=== PATIENT | male | born 1975 | race Caucasian/White ===

== ENCOUNTER 2016-08-31 16:53 | Emergency (ER) | payer OTHER ==
[~2016-08-31] VITALS: Ht 177.8 cm; Wt 128.4 kg
[~2016-08-31 16:53] MED LIST: ATOR1TAB21 PO; ATOR40TA PO; BACL-67 PO; BACL10TA2 PO; COPA20IN SC; GABA300C3 PO; HYDR-3719 PO; HYDR10T PO; MAGN400T5 PO; PARO20TA2 PO; PRAZ1CAP PO; TIZA2TA PO; TOPI25CA PO; VENL150T PO; VITA100066 PO
[2016-08-31] MEDS ORDERED: OMEP40CA2 PO (17:14)
[2016-08-31] MEDS ORDERED: GASTROGRAFIN SOLUTION 30ML (Q9963) As Ordered ONE (22:35)
[2016-08-31] MEDS: GASTROGRAFIN SOLUTION 30ML (Q9963) PO ONE ×2 (22:40→23:10)
[2016-08-31 22:51] LABS: WHITE BLOOD COUNT 7.7 K/mm3 (4.0-10.0)
[2016-08-31 22:52] LABS: BASO # 0.1 K/mm3 (0.0-0.2); BASO % 0.7 % (0.0-1.0); EOS # 0.1 K/mm3 (0.0-0.50); EOS % 1.6 % (0.0-3.0); LARGE UNSTAINED CELL # 0.2 K/mm3 (0.0-0.4); LARGE UNSTAINED CELL % 2.6 % (0.0-4.0); LYMPH # 1.8 K/mm3 (1.5-4.5); LYMPH % 23.7 % (24.0-44.0); MEAN CORPUSCULAR HEMOGLOBIN 28.4 pg (27.0-33.0); MEAN CORPUSCULAR HGB CONC 33.5 g/dl (32.0-36.5); MEAN CORPUSCULAR VOLUME 84.7 fl (80.0-96.0); MONO # 0.6 K/mm3 (0.0-0.8); MONO % 8.4 % (0.0-5.0); NEUTROPHILS # 4.8 K/mm3 (1.8-7.7); PLATELET COUNT, AUTOMATED 286 k/mm3 (150-450); RED CELL DISTRIBUTION WIDTH 12.1 % (11.5-14.5)
[2016-08-31 23:05] LABS: ALBUMIN 4.1 GM/DL (3.2-5.2); ALBUMIN/GLOBULIN RATIO 1.14 (1.00-1.93); ALKALINE PHOSPHATASE 114 U/L (45-117); ALT/SGPT 74 U/L (12-78); ANION GAP 10 MEQ/L (8-16); AST/SGOT 23 U/L (15-37); BILIRUBIN,TOTAL 1.2 MG/DL (0.2-1.0); BLOOD UREA NITROGEN 17 MG/DL (7-18); CALCIUM LEVEL 8.3 MG/DL (8.5-10.1); CARBON DIOXIDE LEVEL 27 MEQ/L (21-32); CHLORIDE LEVEL 106 MEQ/L (98-107); CREATININE FOR GFR 1.19 MG/DL (0.70-1.30); GLOMERULAR FILTRATION RATE > 60.0 (>60); GLUCOSE, FASTING 101 MG/DL (70-105); SODIUM LEVEL 143 MEQ/L (136-145); TOTAL PROTEIN 7.7 GM/DL (6.4-8.2)
[2016-09-01] MEDS ORDERED: ISOVUE-370 76% 100ML VIAL (Q9967) As Ordered ONE (00:08)
[2016-09-01] MEDS ORDERED: LR 1,000 ML IV SCH (01:00)
--- NOTE | 2016-09-01 02:10 | REPUSA ---
CLINICAL HISTORY: Abdominal pain. TECHNIQUE: Multiple axial, sagittal and coronal CT images were obtained through the abdomen and pelvi s after administration of intravenous contrast material. COMMENTS: The liver is of uniform decreased attenuation without mass or defect compatible fatty infiltration. T here is no intra or extrahepatic biliary ductal dilatation. The spleen is normal. The gallbladder is within normal limits. The pancreas is of normal contour and attenuation characteristics. There is no evidence of adrenal mass. Both kidneys demonstrate prompt and equal nephrograms. The kidneys are normal in size, shape and conf iguration. There is no evidence of renal or ureteral mass. No renal or ureteral calculi are identifie d. There is no hydroureter or hydronephrosis. No evidence for appendicitis. There is no bowel wall thickening. No evidence for small or large vicente l obstruction. There is no evidence of abdominal ascites or lymphadenopathy. There is no evidence of intrinsic or extrinsic bladder mass. There is no pelvic ascites or lymphadeno guru. Images of the lung bases show no evidence of pleural or parenchymal mass. There are no pleural effusi ons. The bony structures are free of lytic or blastic lesions. IMPRESSION: Fatty liver. No evidence of acute abdominal or pelvic pathology. Thank you for your kind referral of this patient.
[2016-09-01] MEDS ORDERED: STOO100C PO (02:18)
[2016-09-01 02:53] VITALS: BP 135/78
== END 2016-09-01 02:55 | disposition home or self-care (01) ==
LOC: M ED 19:39
DX: K62.5 Hemorrhage of anus and rectum (principal)
CPT/HCPCS: 74177; 80053; 81001; 85025; 99283; Q9963; Q9967

== ENCOUNTER 2016-09-12 15:05 | Emergency (ER) | payer OTHER ==
[~2016-09-12] VITALS: Ht 175.3 cm; Wt 129.7 kg
[~2016-09-12 15:05] MED LIST changes: +GABA-282 PO; -GABA300C3 PO; +OMEP40CA2 PO; -PARO20TA2 PO; +PARO20TA3 PO; +STOO100C PO
[2016-09-12] MEDS ORDERED: [UNRECOGNIZED DRUG - OTHER] SC (15:18)
[2016-09-12] MEDS ORDERED: GABA-283 PO (15:18)
[2016-09-12] MEDS ORDERED: KETOROLAC 30 MG/ML VIAL (J1885) IV ONE (16:15)
[2016-09-12 17:18] LABS: BASO % 0.6 % (0.0-1.0); EOS # 0.1 K/mm3 (0.0-0.50); EOS % 1.8 % (0.0-3.0); LARGE UNSTAINED CELL # 0.2 K/mm3 (0.0-0.4); LARGE UNSTAINED CELL % 2.7 % (0.0-4.0); LYMPH # 1.9 K/mm3 (1.5-4.5); LYMPH % 27.7 % (24.0-44.0); MEAN CORPUSCULAR HEMOGLOBIN 28.5 pg (27.0-33.0); MEAN CORPUSCULAR HGB CONC 33.8 g/dl (32.0-36.5); MEAN CORPUSCULAR VOLUME 84.4 fl (80.0-96.0); MONO # 0.6 K/mm3 (0.0-0.8); MONO % 8.6 % (0.0-5.0); NEUTROPHILS # 4.1 K/mm3 (1.8-7.7); NEUTROPHILS % 58.7 % (36.0-66.0); PLATELET COUNT, AUTOMATED 306 k/mm3 (150-450); RED CELL DISTRIBUTION WIDTH 12.1 % (11.5-14.5); WHITE BLOOD COUNT 6.9 K/mm3 (4.0-10.0)
[2016-09-12 17:21] LABS: ANION GAP 8 MEQ/L (8-16); BLOOD UREA NITROGEN 13 MG/DL (7-18); CALCIUM LEVEL 9.1 MG/DL (8.5-10.1); CARBON DIOXIDE LEVEL 26 MEQ/L (21-32); CHLORIDE LEVEL 108 MEQ/L (98-107); CREATININE FOR GFR 1.02 MG/DL (0.70-1.30); GLOMERULAR FILTRATION RATE > 60.0 (>60); GLUCOSE, FASTING 82 MG/DL (70-105); POTASSIUM SERUM 4.2 MEQ/L (3.5-5.1); SODIUM LEVEL 142 MEQ/L (136-145)
[2016-09-12 19:24] VITALS: BP 152/71
--- NOTE | 2016-09-12 19:30 | REPUSA ---
CLINICAL HISTORY: -BACK PAIN, NUMBNESS, URINARY INCONTINANCE TECHNIQUE: Fast spin echo T2 and spin echo T1 sequences were obtained in axial and sagittal planes. FINDINGS: Compared to 11/29/15 study. The visualized osseous elements are intact with no evidence of fracture or spondylolisthesis. The marrow signals are within normal limits. There are mild L4-S1 degenerative changes with small posterior spurring and subchondral sclerosis. There is straightening of normal lordotic curvature, compatible with muscle spasm. The conus medullaris and cauda equina are within normal limits. L2-S1 moderate disc desiccation noted. Evaluation of individual levels reveals the following: At L5-S1, 2 mm posterior broad-based disc bulge. Canal and neural foramina remain patent. At L4-L5, 2 mm posterior broadbase disc bulge. Canal and neural foramina remain patent. At L3-L4, 2 mm posterior broad-based disc bulge. Canal and neural foramina remain patent. At L2-L3, 1 mm posterior broad-based disc bulge. Canal and neural foramina remain patent. At L1-L2, there is no disk herniation or bulge. Canal and neural foramina remain patent. IMPRESSION: No interval change. No acute fracture or spondylolisthesis. At L5-S1, 2 mm posterior broad-based disc bulge. Canal and neural foramina remain patent. At L4-L5, 2 mm posterior broadbase disc bulge. Canal and neural foramina remain patent. At L3-L4, 2 mm posterior broad-based disc bulge. Canal and neural foramina remain patent. At L2-L3, 1 mm posterior broad-based disc bulge. Canal and neural foramina remain patent. Thank you for your kind referral of this patient.
--- NOTE | 2016-09-13 06:52 | ED PDOC ---
Post-Departure Follow-Up patient was signed out to me by Dr. Garcia pending MRI at 5:30. At 7pm I signed patient out to Dr. Li still pending results of MRI. Marie Leal MD Sep 13, 2016 06:52
== END 2016-09-12 21:49 | disposition home or self-care (01) ==
LOC: M ED 17:03
DX: G89.29 Other chronic pain (principal); M54.9 Dorsalgia, unspecified
CPT/HCPCS: 72148; 80048; 85025; 96374; 96375; 99283; J1885; J3360

== ENCOUNTER 2017-06-13 14:55 | Emergency (ER) | payer OTHER ==
[2017-06-13] MEDS: NS 1,000 ML IV (15:30)
[2017-06-13 15:42] LABS: MEAN CORPUSCULAR HEMOGLOBIN 28.5 pg (27.0-33.0); MEAN CORPUSCULAR HGB CONC 33.9 g/dl (32.0-36.5); MEAN CORPUSCULAR VOLUME 84.3 fl (80.0-96.0); PLATELET COUNT, AUTOMATED 323 10^3/uL (150-450); RED CELL DISTRIBUTION WIDTH 12.1 % (11.5-14.5); WHITE BLOOD COUNT 6.3 10^3/uL (4.0-10.0)
[2017-06-13] MEDS: methylPREDNISolone 1,000 MG, VIAL MATE ADAPTER 1 EACH in D5W 250 ML IV (15:42)
[2017-06-13 16:10] LABS: ANION GAP 7 MEQ/L (8-16); BLOOD UREA NITROGEN 14 MG/DL (7-18); CALCIUM LEVEL 8.8 MG/DL (8.5-10.1); CARBON DIOXIDE LEVEL 27 MEQ/L (21-32); CHLORIDE LEVEL 107 MEQ/L (98-107); CREATININE FOR GFR 1.04 MG/DL (0.70-1.30); GLOMERULAR FILTRATION RATE > 60.0 (>60); GLUCOSE, FASTING 98 MG/DL (70-105); POTASSIUM SERUM 3.7 MEQ/L (3.5-5.1); SODIUM LEVEL 141 MEQ/L (136-145)
[2017-06-13 17:37] LABS: AMORPHOUS SEDIMENT RFX SMALL (NEGATIVE); KETONE, URINE AUTO RFX NEGATIVE (NEGATIVE); LEUKOCYTE ESTERASE UR AUTO RFX NEGATIVE (NEGATIVE); NITRITE, URINE AUTO RFX NEGATIVE (NEGATIVE); RBC, URINE AUTO RFX 1 /HPF (0-3); SPECIFIC GRAVITY UR AUTO RFX 1.002 (1.002-1.035); SQUAM EPITHELIAL CELL UR AURFX 0 /HPF (0-6); WBC, URINE AUTO RFX 0 /HPF (0-3)
== END 2017-06-13 18:00 | disposition home or self-care (01) ==
LOC: M ED 14:55
DX: G35 Multiple sclerosis (principal); F43.10 Post-traumatic stress disorder, unspecified; Z87.820 Personal history of traumatic brain injury; Z79.899 Other long term (current) drug therapy; Z88.8 Allergy status to other drugs, medicaments and biological substances; Z99.89 Dependence on other enabling machines and devices
CPT/HCPCS: J2930

== ENCOUNTER 2017-08-14 15:39 | Emergency (ER) | payer OTHER ==
[2017-08-14] MEDS: diphenhydrAMINE INJ 50MG/ML VIAL (J1200) IV (16:50)
[2017-08-14] MEDS: METOCLOPRAMIDE INJ 10MG/2ML VIAL (J2765) IV (17:00)
[2017-08-14] MEDS: KETOROLAC 30 MG/ML VIAL (J1885) IV (17:00)
[2017-08-14] MEDS: NS 1,000 ML IV (17:00)
[2017-08-14] MEDS: methylPREDNISolone 1,000 MG, VIAL MATE ADAPTER 1 EACH in D5W 250 ML IV (17:00)
== END 2017-08-14 19:18 | disposition home or self-care (01) ==
LOC: M ED 15:39
DX: G35 Multiple sclerosis (principal); R51 Headache; R20.9 Unspecified disturbances of skin sensation; Z87.891 Personal history of nicotine dependence; Z88.8 Allergy status to other drugs, medicaments and biological substances; Z79.899 Other long term (current) drug therapy
CPT/HCPCS: J1200

== ENCOUNTER 2017-11-02 20:23 | Inpatient (IN) | payer OTHER ==
[2017-11-02 21:55] LABS: BASO % 0.5 % (0.0-1.0); EOS # 0.2 10^3/uL (0.0-0.50); EOS % 2.5 % (0.0-3.0); HEMATOCRIT 40.3 % (42.0-52.0); HEMOGLOBIN 13.4 g/dl (13.5-17.5); IMMATURE GRANULOCYTE % 0.3 % (0-3.0); LYMPH # 2.5 10^3/uL (1.5-4.5); MEAN CORPUSCULAR HEMOGLOBIN 28.6 pg (27.0-33.0); MEAN CORPUSCULAR HGB CONC 33.3 g/dl (32.0-36.5); MEAN CORPUSCULAR VOLUME 86.1 fl (80.0-96.0); MONO # 0.7 10^3/uL (0.0-0.8); MONO % 11.4 % (0.0-5.0); NEUTROPHILS % 46.3 % (36.0-66.0); PLATELET COUNT, AUTOMATED 322 10^3/uL (150-450); RED BLOOD COUNT 4.68 10^6/uL (4.30-6.10); RED CELL DISTRIBUTION WIDTH 12.4 % (11.5-14.5); WHITE BLOOD COUNT 6.4 10^3/uL (4.0-10.0)
[2017-11-02 21:59] LABS: INR 0.89; PROTHROMBIN TIME 12.1 SECONDS (12.4-14.5)
[2017-11-02 22:00] LABS: PARTIAL THROMBOPLASTIN TIME 30.1 SECONDS (26.8-37.9)
[2017-11-02 22:08] LABS: ALBUMIN 4.1 GM/DL (3.2-5.2); ALBUMIN/GLOBULIN RATIO 1.24 (1.00-1.93); ALKALINE PHOSPHATASE 117 U/L (45-117); ALT/SGPT 27 U/L (12-78); ANION GAP 6 MEQ/L (8-16); AST/SGOT 13 U/L (7-37); BILIRUBIN,DIRECT 0.1 MG/DL (0.0-0.2); BILIRUBIN,TOTAL 0.4 MG/DL (0.2-1.0); BLOOD UREA NITROGEN 12 MG/DL (7-18); CARBON DIOXIDE LEVEL 25 MEQ/L (21-32); CHLORIDE LEVEL 112 MEQ/L (98-107); CPK CREATINE PHOSPHOKINASE 68 U/L (39-308); CREATININE FOR GFR 0.96 MG/DL (0.70-1.30); GLOMERULAR FILTRATION RATE > 60.0 (>60); GLUCOSE, FASTING 92 MG/DL (70-100); MB/CK RELATIVE INDEX 1.47 (< OR =4); POTASSIUM SERUM 3.8 MEQ/L (3.5-5.1); SODIUM LEVEL 143 MEQ/L (136-145); TOTAL PROTEIN 7.4 GM/DL (6.4-8.2); TROPONIN I < 0.02 NG/ML (< 0.10)
[2017-11-02] MEDS ORDERED: PROHANCE 279.3MG/ML 5ML VIAL (A9576) As Ordered (23:09)
[2017-11-02] MEDS ORDERED: PROHANCE 279.3MG/ML 15ML VIAL (A9576) As Ordered (23:10)
[2017-11-03] MEDS ORDERED: ONDANSETRON 4MG/2ML VIAL (J2405) IV (02:30)
[2017-11-03] MEDS: methylPREDNISolone 1,000 MG, VIAL MATE ADAPTER 1 EACH in D5W 250 ML IV (03:11)
[2017-11-03] MEDS ORDERED: PILL CRUSHER/CUTTER 1 EACH XX (03:45)
[2017-11-03 06:26] LABS: BASO % 0.6 % (0.0-1.0); EOS # 0.1 10^3/uL (0.0-0.50); EOS % 1.5 % (0.0-3.0); HEMATOCRIT 39.2 % (42.0-52.0); HEMOGLOBIN 13.3 g/dl (13.5-17.5); IMMATURE GRANULOCYTE % 0.2 % (0-3.0); LYMPH # 1.3 10^3/uL (1.5-4.5); LYMPH % 23.9 % (24.0-44.0); MEAN CORPUSCULAR HEMOGLOBIN 28.9 pg (27.0-33.0); MEAN CORPUSCULAR HGB CONC 33.9 g/dl (32.0-36.5); MONO # 0.3 10^3/uL (0.0-0.8); MONO % 6.2 % (0.0-5.0); NEUTROPHILS # 3.6 10^3/uL (1.8-7.7); NEUTROPHILS % 67.6 % (36.0-66.0); PLATELET COUNT, AUTOMATED 306 10^3/uL (150-450); RED BLOOD COUNT 4.61 10^6/uL (4.30-6.10); RED CELL DISTRIBUTION WIDTH 12.3 % (11.5-14.5); WHITE BLOOD COUNT 5.4 10^3/uL (4.0-10.0)
[2017-11-03 06:48] LABS: ANION GAP 7 MEQ/L (8-16); BLOOD UREA NITROGEN 12 MG/DL (7-18); CALCIUM LEVEL 8.8 MG/DL (8.5-10.1); CARBON DIOXIDE LEVEL 23 MEQ/L (21-32); CHLORIDE LEVEL 113 MEQ/L (98-107); CREATININE FOR GFR 0.98 MG/DL (0.70-1.30); GLOMERULAR FILTRATION RATE > 60.0 (>60); GLUCOSE, FASTING 130 MG/DL (70-100); SODIUM LEVEL 143 MEQ/L (136-145)
[2017-11-03] MEDS: TOPIRAMATE (TopAMAX) 25 MG TAB PO (08:10)
[2017-11-03] MEDS: levETIRAcetam 250MG TABLET (KEPPRA) PO ×2 (08:10→21:41)
[2017-11-03] MEDS: busPIRone 10 MG TAB PO ×2 (08:11→21:41)
[2017-11-03] MEDS: SENOKOT S TAB PO ×2 (08:13→21:41)
[2017-11-03] MEDS: VENLAFAXINE **XR** 75MG CAPSULE PO (08:13)
[2017-11-03] MEDS: HEPARIN SOD (PORCINE) 5000 UNITS/ML VIAL SC ×3 (08:14→21:40)
[2017-11-03] MEDS: PARoxetine 10MG TABLET PO ×2 (08:37→21:41)
[2017-11-03] MEDS: ROSUVASTATIN 10 MG TAB (CRESTOR) PO (09:00)
[2017-11-03] MEDS: ACETAMINOPHEN TAB 650MG DOSE (2X325MG) PO (19:02)
[2017-11-03] MEDS: TOPIRAMATE (TopAMAX) 100 MG TAB PO (21:41)
[2017-11-04] MEDS: HEPARIN SOD (PORCINE) 5000 UNITS/ML VIAL SC ×3 (05:39→20:20)
[2017-11-04 06:34] LABS: BASO % 0.1 % (0.0-1.0); HEMATOCRIT 41.5 % (42.0-52.0); HEMOGLOBIN 13.9 g/dl (13.5-17.5); IMMATURE GRANULOCYTE % 0.7 % (0-3.0); LYMPH # 1.9 10^3/uL (1.5-4.5); LYMPH % 8.8 % (24.0-44.0); MEAN CORPUSCULAR HEMOGLOBIN 28.6 pg (27.0-33.0); MEAN CORPUSCULAR HGB CONC 33.5 g/dl (32.0-36.5); MEAN CORPUSCULAR VOLUME 85.4 fl (80.0-96.0); MONO # 1.5 10^3/uL (0.0-0.8); MONO % 6.8 % (0.0-5.0); NEUTROPHILS # 18.2 10^3/uL (1.8-7.7); NEUTROPHILS % 83.6 % (36.0-66.0); PLATELET COUNT, AUTOMATED 374 10^3/uL (150-450); RED BLOOD COUNT 4.86 10^6/uL (4.30-6.10); RED CELL DISTRIBUTION WIDTH 12.5 % (11.5-14.5); WHITE BLOOD COUNT 21.8 10^3/uL (4.0-10.0)
[2017-11-04 06:43] LABS: ANION GAP 6 MEQ/L (8-16); BLOOD UREA NITROGEN 13 MG/DL (7-18); CALCIUM LEVEL 9.6 MG/DL (8.5-10.1); CARBON DIOXIDE LEVEL 24 MEQ/L (21-32); CHLORIDE LEVEL 114 MEQ/L (98-107); CREATININE FOR GFR 0.87 MG/DL (0.70-1.30); GLOMERULAR FILTRATION RATE > 60.0 (>60); GLUCOSE, FASTING 126 MG/DL (70-100); POTASSIUM SERUM 4.3 MEQ/L (3.5-5.1); SODIUM LEVEL 144 MEQ/L (136-145)
[2017-11-04] MEDS: busPIRone 10 MG TAB PO ×2 (07:58→20:19)
[2017-11-04] MEDS: TOPIRAMATE (TopAMAX) 25 MG TAB PO (07:59)
[2017-11-04] MEDS: SENOKOT S TAB PO ×2 (07:59→20:19)
[2017-11-04] MEDS: VENLAFAXINE **XR** 75MG CAPSULE PO (07:59)
[2017-11-04] MEDS: levETIRAcetam 250MG TABLET (KEPPRA) PO ×2 (07:59→20:19)
[2017-11-04] MEDS: ROSUVASTATIN 10 MG TAB (CRESTOR) PO (08:30)
[2017-11-04] MEDS: methylPREDNISolone 1,000 MG, VIAL MATE ADAPTER 1 EACH in D5W 250 ML IV (08:45)
[2017-11-04] MEDS ORDERED: COPAXONE 40 MG SC ×2 (09:00→14:03)
[2017-11-04] MEDS: COPAXONE 40 MG SC (17:17)
[2017-11-04] MEDS ORDERED: HEPARIN SOD (PORCINE) 5000 UNITS/ML VIAL As Ordered (20:08)
[2017-11-04] MEDS: PARoxetine 10MG TABLET PO (20:19)
[2017-11-04] MEDS: TOPIRAMATE (TopAMAX) 100 MG TAB PO (20:19)
[2017-11-05] MEDS: HEPARIN SOD (PORCINE) 5000 UNITS/ML VIAL SC (05:21)
[2017-11-05 06:44] LABS: BASO % 0.1 % (0.0-1.0); HEMATOCRIT 39.2 % (42.0-52.0); IMMATURE GRANULOCYTE % 0.7 % (0-3.0); LYMPH # 1.9 10^3/uL (1.5-4.5); LYMPH % 9.2 % (24.0-44.0); MEAN CORPUSCULAR HEMOGLOBIN 28.5 pg (27.0-33.0); MEAN CORPUSCULAR HGB CONC 33.2 g/dl (32.0-36.5); MONO # 1.2 10^3/uL (0.0-0.8); MONO % 5.8 % (0.0-5.0); NEUTROPHILS # 17.5 10^3/uL (1.8-7.7); NEUTROPHILS % 84.2 % (36.0-66.0); PLATELET COUNT, AUTOMATED 332 10^3/uL (150-450); RED BLOOD COUNT 4.56 10^6/uL (4.30-6.10); RED CELL DISTRIBUTION WIDTH 12.7 % (11.5-14.5); WHITE BLOOD COUNT 20.8 10^3/uL (4.0-10.0)
[2017-11-05 07:06] LABS: ANION GAP 6 MEQ/L (8-16); BLOOD UREA NITROGEN 14 MG/DL (7-18); CALCIUM LEVEL 8.9 MG/DL (8.5-10.1); CARBON DIOXIDE LEVEL 24 MEQ/L (21-32); CHLORIDE LEVEL 112 MEQ/L (98-107); CREATININE FOR GFR 0.86 MG/DL (0.70-1.30); GLOMERULAR FILTRATION RATE > 60.0 (>60); GLUCOSE, FASTING 126 MG/DL (70-100); POTASSIUM SERUM 4.4 MEQ/L (3.5-5.1); SODIUM LEVEL 142 MEQ/L (136-145)
[2017-11-05] MEDS: busPIRone 10 MG TAB PO (08:20)
[2017-11-05] MEDS: ROSUVASTATIN 10 MG TAB (CRESTOR) PO (08:20)
[2017-11-05] MEDS: TOPIRAMATE (TopAMAX) 25 MG TAB PO (08:21)
[2017-11-05] MEDS: VENLAFAXINE **XR** 75MG CAPSULE PO (08:21)
[2017-11-05] MEDS: SENOKOT S TAB PO (08:21)
[2017-11-05] MEDS: methylPREDNISolone 1,000 MG, VIAL MATE ADAPTER 1 EACH in D5W 250 ML IV (08:23)
== END 2017-11-05 12:15 | disposition home or self-care (01) | DRG 59 ==
LOC: M ED INP 11-03 04:39 → M ED 20:23 → M MS5PR 11-03 07:51
DX: G35 Multiple sclerosis (principal); H46.9 Unspecified optic neuritis; Z88.8 Allergy status to other drugs, medicaments and biological substances; F41.9 Anxiety disorder, unspecified; F32.9 Major depressive disorder, single episode, unspecified; E78.5 Hyperlipidemia, unspecified; M54.5 Low back pain; G47.33 Obstructive sleep apnea (adult) (pediatric); M10.9 Gout, unspecified; Z79.899 Other long term (current) drug therapy; F17.220 Nicotine dependence, chewing tobacco, uncomplicated; F12.90 Cannabis use, unspecified, uncomplicated

== ENCOUNTER 2017-11-06 07:22 | Outpatient (CLI) | payer SELFPAY, OTHER ==
[2017-11-06] MEDS: methylPREDNISolone 1,000 MG, VIAL MATE ADAPTER 1 EACH in D5W 250 ML IV (07:44)
== END 2017-11-06 08:50 | disposition home or self-care (01) ==
LOC: M INFU 07:22
DX: J44.9 Chronic obstructive pulmonary disease, unspecified (principal); G35 Multiple sclerosis; I10 Essential (primary) hypertension; E78.00 Pure hypercholesterolemia, unspecified; M54.5 Low back pain; F32.9 Major depressive disorder, single episode, unspecified; F41.9 Anxiety disorder, unspecified; F17.210 Nicotine dependence, cigarettes, uncomplicated; Z79.899 Other long term (current) drug therapy; Z88.8 Allergy status to other drugs, medicaments and biological substances
CPT/HCPCS: J2930

== ENCOUNTER 2018-01-13 00:46 | Emergency (ER) | payer OTHER, SELFPAY ==
[2018-01-13 02:31] LABS: BASO % 0.4 % (0.0-1.0); EOS # 0.2 10^3/uL (0.0-0.50); EOS % 2.1 % (0.0-3.0); HEMOGLOBIN 12.7 g/dl (13.5-17.5); IMMATURE GRANULOCYTE % 0.4 % (0-3.0); LYMPH # 1.9 10^3/uL (1.5-4.5); LYMPH % 25.3 % (24.0-44.0); MEAN CORPUSCULAR HEMOGLOBIN 28.9 pg (27.0-33.0); MEAN CORPUSCULAR HGB CONC 33.4 g/dl (32.0-36.5); MEAN CORPUSCULAR VOLUME 86.4 fl (80.0-96.0); MONO # 0.8 10^3/uL (0.0-0.8); MONO % 10.6 % (0.0-5.0); NEUTROPHILS # 4.6 10^3/uL (1.8-7.7); NEUTROPHILS % 61.2 % (36.0-66.0); PLATELET COUNT, AUTOMATED 258 10^3/uL (150-450); RED CELL DISTRIBUTION WIDTH 12.1 % (11.5-14.5); WHITE BLOOD COUNT 7.6 10^3/uL (4.0-10.0)
[2018-01-13 02:50] LABS: ANION GAP 9 MEQ/L (8-16); BLOOD UREA NITROGEN 14 MG/DL (7-18); CALCIUM LEVEL 8.4 MG/DL (8.5-10.1); CARBON DIOXIDE LEVEL 23 MEQ/L (21-32); CHLORIDE LEVEL 111 MEQ/L (98-107); CREATININE FOR GFR 0.92 MG/DL (0.70-1.30); GLOMERULAR FILTRATION RATE > 60.0 (>60); GLUCOSE, FASTING 129 MG/DL (70-100); POTASSIUM SERUM 3.5 MEQ/L (3.5-5.1); SODIUM LEVEL 143 MEQ/L (136-145)
[2018-01-13 02:54] LABS: LACTIC ACID SEPSIS PROTOCOL 0.9 MMOL/L (0.4-2.0)
[2018-01-13] MEDS: NS 500 ML IV (03:15)
[2018-01-13] MEDS: levETIRAcetam 250MG TABLET (KEPPRA) PO (03:24)
== END 2018-01-13 03:58 | disposition home or self-care (01) ==
LOC: M ED 00:46
DX: G40.909 Epilepsy, unspecified, not intractable, without status epilepticus (principal); G35 Multiple sclerosis; Z87.891 Personal history of nicotine dependence; Z88.8 Allergy status to other drugs, medicaments and biological substances; Z79.899 Other long term (current) drug therapy
CPT/HCPCS: 83605

== ENCOUNTER 2018-05-01 10:36 | Emergency (ER) | payer OTHER ==
[2018-05-01] MEDS: MORPHINE 4 MG/ML 1ML VIAL/SYRINGE (J2270) IV ×2 (12:07→13:15)
== END 2018-05-01 14:06 | disposition home or self-care (01) ==
LOC: M ED 10:36
DX: M54.5 Low back pain (principal); W19.XXXA Unspecified fall, initial encounter; I10 Essential (primary) hypertension; E78.5 Hyperlipidemia, unspecified; F43.10 Post-traumatic stress disorder, unspecified; R51 Headache; G35 Multiple sclerosis; Z86.718 Personal history of other venous thrombosis and embolism; G47.30 Sleep apnea, unspecified; K21.9 Gastro-esophageal reflux disease without esophagitis; N40.0 Benign prostatic hyperplasia without lower urinary tract symptoms; K52.9 Noninfective gastroenteritis and colitis, unspecified; Z87.820 Personal history of traumatic brain injury; M21.372 Foot drop, left foot; H46.9 Unspecified optic neuritis; Z79.899 Other long term (current) drug therapy; Z88.8 Allergy status to other drugs, medicaments and biological substances
CPT/HCPCS: J2270

== ENCOUNTER 2018-05-12 00:09 | Emergency (ER) | payer OTHER ==
[2018-05-12 01:39] LABS: BASO % 0.2 % (0.0-1.0); EOS # 0.1 10^3/uL (0.0-0.50); EOS % 1.5 % (0.0-3.0); HEMATOCRIT 38.7 % (42.0-52.0); IMMATURE GRANULOCYTE % 0.4 % (0-3.0); LYMPH # 0.5 10^3/uL (1.5-4.5); LYMPH % 8.3 % (24.0-44.0); MEAN CORPUSCULAR HEMOGLOBIN 28.7 pg (27.0-33.0); MEAN CORPUSCULAR HGB CONC 33.6 g/dl (32.0-36.5); MEAN CORPUSCULAR VOLUME 85.4 fl (80.0-96.0); MONO # 0.8 10^3/uL (0.0-0.8); MONO % 14.5 % (0.0-5.0); NEUTROPHILS # 4.1 10^3/uL (1.8-7.7); NEUTROPHILS % 75.1 % (36.0-66.0); PLATELET COUNT, AUTOMATED 251 10^3/uL (150-450); RED BLOOD COUNT 4.53 10^6/uL (4.30-6.10); RED CELL DISTRIBUTION WIDTH 12.1 % (11.5-14.5); WHITE BLOOD COUNT 5.5 10^3/uL (4.0-10.0)
[2018-05-12 01:59] LABS: ANION GAP 6 MEQ/L (8-16); BLOOD UREA NITROGEN 17 MG/DL (7-18); CALCIUM LEVEL 8.4 MG/DL (8.5-10.1); CARBON DIOXIDE LEVEL 25 MEQ/L (21-32); CHLORIDE LEVEL 110 MEQ/L (98-107); CREATININE FOR GFR 1.07 MG/DL (0.70-1.30); GLOMERULAR FILTRATION RATE > 60.0 (>60); GLUCOSE, FASTING 102 MG/DL (70-100); MAGNESIUM LEVEL 2.1 MG/DL (1.8-2.4); PHOSPHORUS LEVEL 3.3 MG/DL (2.5-4.9); POTASSIUM SERUM 3.7 MEQ/L (3.5-5.1); SODIUM LEVEL 141 MEQ/L (136-145)
[2018-05-12] MEDS: LORazepam 2 MG/ML VIAL (J2060) IV (02:30)
== END 2018-05-12 02:42 | disposition home or self-care (01) ==
LOC: M ED 00:09
DX: F41.9 Anxiety disorder, unspecified (principal); F44.5 Conversion disorder with seizures or convulsions; Z79.899 Other long term (current) drug therapy; Z88.8 Allergy status to other drugs, medicaments and biological substances; F17.220 Nicotine dependence, chewing tobacco, uncomplicated
CPT/HCPCS: J2060

== ENCOUNTER 2018-07-24 23:33 | Emergency (ER) | payer OTHER ==
[~2018-07-24] VITALS: Ht 177.8 cm; Wt 110.5 kg
[~2018-07-24 23:33] MED LIST changes: +ATIV1TAB10 PO; -ATOR40TA PO; +ATOR40TA75 PO; -BACL-67 PO; +BACL1TAB9 PO; +BUSP10TA PO; +COPA1INJ SC; +CRES5TAB PO; +CYCL10TA PO; +DULO30CA PO; -GABA-282 PO; +GABA-843 PO; +GABA-845 PO; +GILE1CAP PO; +HYDR-643 PO; -HYDR10T PO; +KEPP1TAB2 PO; +MYSO50TA5 PO; +TOPI100T9 PO; +TOPI25TA10 PO; +VENL150C43 PO; +ZYLO100T2 PO; +[UNRECOGNIZED DRUG - OTHER] SC
[2018-07-24] MEDS ORDERED: NAPROXEN 250 MG TAB PO ONE (23:45)
[2018-07-24] MEDS ORDERED: NAPR-50 PO (23:47)
[2018-07-25] MEDS ORDERED: AMMONIA AROMATIC INHALANT (FLOOR STOCK) As Ordered ONE (00:06)
[2018-07-25] MEDS ORDERED: methylPREDNISolone 1,000 MG, VIAL MATE ADAPTER 1 EACH in D5W 250 ML IV ONE (00:15)
[2018-07-25 00:34] LABS: HEMATOCRIT 39.5 % (42.0-52.0); HEMOGLOBIN 13.5 g/dl (13.5-17.5); WHITE BLOOD COUNT 4.4 10^3/uL (4.0-10.0)
[2018-07-25 00:35] LABS: BASO % 0.5 % (0.0-1.0); EOS # 0.1 10^3/uL (0.0-0.50); EOS % 1.4 % (0.0-3.0); LYMPH # 1.1 10^3/uL (1.5-4.5); LYMPH % 24.7 % (24.0-44.0); MEAN CORPUSCULAR HEMOGLOBIN 28.7 pg (27.0-33.0); MEAN CORPUSCULAR HGB CONC 34.2 g/dl (32.0-36.5); MONO # 0.8 10^3/uL (0.0-0.8); MONO % 17.8 % (0.0-5.0); NEUTROPHILS # 2.4 10^3/uL (1.8-7.7); NEUTROPHILS % 55.4 % (36.0-66.0); PLATELET COUNT, AUTOMATED 264 10^3/uL (150-450)
--- NOTE | 2018-07-25 00:37 | REPVR ---
EXAM: CT Head Without Contrast EXAM DATE/TIME: 07/25/2018 12:13 AM CLINICAL HISTORY: 43 years old, male; Pain; Headache; Headache not specified; Additional info: CVA - nursing interventions must not delay CT TECHNIQUE: Axial computed tomography images of the head/brain without contrast. All CT scans at this facility use at least one of these dose optimization techniques: automated exposure control; mA and/or kV adjustment per patient size (includes targeted exams where dose is matched to clinical indication); or iterative reconstruction. COMPARISON: CT Head without contrast 11/02/2017 9:56 PM FINDINGS: Brain: Minimal area of subcortical gliosis or old deep white matter infarct in the left frontal lobe which is less prominent since the prior study. Ventricles: Normal. No ventriculomegaly. Bones/joints: Unremarkable. No acute fracture. Sinuses: Visualized sinuses are unremarkable. No acute sinusitis. Mastoid air cells: Visualized mastoid air cells are unremarkable. No mastoid effusion. Soft tissues: Unremarkable. IMPRESSION: 1. Minimal subcortical old deep white matter infarct or gliosis in the left frontal lobe which is less prominent since 11/02/2017. 2. Otherwise negative noncontrast head CT which is otherwise unchanged. Electronically signed by: Brain Jj On 07/25/2018 00:37:36 AM
[2018-07-25 00:59] LABS: BLOOD UREA NITROGEN 14 MG/DL (7-18); CALCIUM LEVEL 8.8 MG/DL (8.5-10.1); CARBON DIOXIDE LEVEL 25 MEQ/L (21-32); CHLORIDE LEVEL 110 MEQ/L (98-107); CPK CREATINE PHOSPHOKINASE 76 U/L (39-308); CREATININE FOR GFR 1.06 MG/DL (0.70-1.30); GLOMERULAR FILTRATION RATE > 60.0 (>60); GLUCOSE, FASTING 125 MG/DL (70-100); MB/CK RELATIVE INDEX 1.32 (< OR =4); POTASSIUM SERUM 3.7 MEQ/L (3.5-5.1); SODIUM LEVEL 142 MEQ/L (136-145); TROPONIN I < 0.02 NG/ML (< 0.10)
[2018-07-25 01:06] LABS: INR 0.95; PROTHROMBIN TIME 12.8 SECONDS (12.1-14.4)
[2018-07-25 01:07] LABS: PARTIAL THROMBOPLASTIN TIME 28.4 SECONDS (25.4-37.6)
--- NOTE | 2018-07-25 02:08 | REP ---
Clinical: Cerebrovascular accident . Comparison: 06/13/2017 . Findings: The mediastinum and cardiac silhouette are stable and within normal limits for portable technique. The lung emmanuel are clear without acute consolidation, effusion, or pneumothorax. Skeletal structures are intact. Impression: No acute cardiopulmonary process appreciated. Electronically Signed by Eber Gonzalez MD 07/25/2018 02:00 A
[2018-07-25] MEDS ORDERED: PROHANCE 279.3MG/ML 15ML VIAL (A9576) As Ordered ONE (04:48)
[2018-07-25] MEDS ORDERED: PROHANCE 279.3MG/ML 5ML VIAL (A9576) As Ordered ONE (04:48)
--- NOTE | 2018-07-25 06:51 | REPVR ---
EXAM: MR Head Without and With Contrast EXAM DATE/TIME: 07/25/2018 5:11 AM CLINICAL HISTORY: 43 years old, male; Condition or disease; Convulsions or seizures and multiple sclerosis; Epilepsy; Severity not specified; Unspecified; Patient HX: Sz <24 hours prior PT states HX of ms and siezure disorder, nki, priors on pacs. PT was given 20cc prohance; Additional info: Headache, seizures, HX of ms TECHNIQUE: MR of the head without and with intravenous contrast. CONTRAST: 20 ml of prohance administered intravenously. COMPARISON: MRI-Brain W/O FOLL BY WITH 11/02/2017 11:37 PM FINDINGS: Brain: There is a focus of subcortical restricted diffusion in the parafalacine high parietal lobe (series 604 image 192), unchanged since the prior exam. There is a new focus of restricted diffusion in the left frontal lobe (series 604 image 184). There is a focus of minimal restricted diffusion in the right rock radiata (C604 image 160) seen on the prior exam and demonstrating decrease restricted diffusion as compared to the prior exam. Ventricles: Normal. No ventriculomegaly. Bones/joints: Unremarkable. Soft tissues: Normal. Sinuses: Normal as visualized. No acute sinusitis. Mastoid air cells: Normal as visualized. No mastoid effusion. Orbits: Unremarkable. IMPRESSION: 1. Interval development of a single focus of restricted diffusion in the subcortical white matter of the left frontal lobe but with no appreciable post contrast enhancement. 2. Single focus of restricted diffusion in the parafalcine left parietal lobe, unchanged since the prior exam. 3. 2 foci of T2/flair hyperintensities in the right rock radiata and left frontal subcortical white matter demonstrating decreased restricted diffusion and no post contrast enhancement. 4. Overall findings suggest stable to improving pre-existing demyelinating white matter lesions with interval development of a single active demyelinating lesion in the left frontal lobe. Electronically signed by: Doni Manuel On 07/25/2018 06:51:35 AM
[2018-07-25] MEDS ORDERED: PRED20TA PO (07:00)
[2018-07-25 07:09] VITALS: BP 115/56
--- NOTE | 2018-07-25 13:16 | ECGEPIP ---
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
== END 2018-07-25 07:11 | disposition home or self-care (01) ==
LOC: M ED 23:33
DX: G35 Multiple sclerosis (principal); F44.5 Conversion disorder with seizures or convulsions; Z79.899 Other long term (current) drug therapy; Z88.8 Allergy status to other drugs, medicaments and biological substances
CPT/HCPCS: 70450; 70553; 71045; 80048; 82550; 82553; 84484; 85025; 85610; 85730; 86850; 86900; 86901; 93005; 93041; 94760; 96374; 99285; A9576; J2930

== ENCOUNTER 2019-11-16 12:34 | Inpatient (IN) | payer OTHER ==
[~2019-11-16] VITALS: Ht 177.8 cm; Wt 111.0 kg
[~2019-11-16 12:34] MED LIST changes: +CYCL-707 PO; -CYCL10TA PO; -DULO30CA PO; +DULO30CA9 PO; +MM S100C PO; +NAPR-837 PO; -OMEP40CA2 PO; +OMEP40CA97 PO; +PRED20TA PO; -STOO100C PO; -TOPI25CA PO; +TOPI25CA3 PO; -VENL150T PO; +VENL150T14 PO
[2019-11-16] MEDS ORDERED: PRAZ1CAP (12:51)
[2019-11-16] MEDS ORDERED: PREG75CA2 PO (12:51)
[2019-11-16] MEDS ORDERED: VENL75CA47 PO (12:51)
[2019-11-16] MEDS ORDERED: VITA-122 PO (12:51)
[2019-11-16] MEDS ORDERED: OXYC1TAB23 PO (12:51)
[2019-11-16] MEDS ORDERED: NARC1SPR (12:51)
--- NOTE | 2019-11-16 13:30 | REPVR ---
PROCEDURE INFORMATION: Exam: CT Head Without Contrast Exam date and time: 11/16/2019 1:21 PM Age: 44 years old Clinical indication: Other: Neuro symptoms; Additional info: CVA - nursing interventions must not delay CT TECHNIQUE: Imaging protocol: Computed tomography of the head without contrast. Radiation optimization: All CT scans at this facility use at least one of these dose optimization techniques: automated exposure control; mA and/or kV adjustment per patient size (includes targeted exams where dose is matched to clinical indication); or iterative reconstruction. Other technique: STROKE PROTOCOL was implemented. COMPARISON: 1. CT Head without contrast 07/25/2018 12:17 AM 2. MRI-Brain W/O FOLL BY WITH 07/25/2018 4:33:15 AM FINDINGS: Brain: Normal. No hemorrhage. Unremarkable white matter. No mass effect. Ventricles: Normal. No ventriculomegaly. Bones/joints: Unremarkable. No acute fracture. Sinuses: Visualized sinuses are unremarkable. No fluid levels. Mastoid air cells: Visualized mastoid air cells are well aerated. Soft tissues: Unremarkable. IMPRESSION: No acute intracranial abnormality identified. ASSESSMENT: ASPECTS ([place] Stroke Program Early CT Score) is 10. Electronically signed by: Garret Mckeon On 11/16/2019 13:30:24 PM
[2019-11-16 14:01] LABS: BASO % 0.6 % (0.0-1.0); EOS % 0.6 % (0.0-3.0); HEMATOCRIT 38.9 % (42.0-52.0); HEMOGLOBIN 13.1 g/dl (13.5-17.5); LYMPH # 0.8 10^3/uL (1.5-5.0); LYMPH % 16.4 % (24.0-44.0); MEAN CORPUSCULAR HEMOGLOBIN 28.7 pg (27.0-33.0); MEAN CORPUSCULAR HGB CONC 33.7 g/dl (32.0-36.5); MEAN CORPUSCULAR VOLUME 85.3 fl (80.0-96.0); MONO # 0.6 10^3/uL (0.0-0.8); MONO % 12.4 % (0.0-5.0); NEUTROPHILS # 3.3 10^3/uL (1.5-8.5); NEUTROPHILS % 69.6 % (36.0-66.0); PLATELET COUNT, AUTOMATED 262 10^3/uL (150-450); RED BLOOD COUNT 4.56 10^6/uL (4.30-6.10); WHITE BLOOD COUNT 4.8 10^3/uL (4.0-10.0)
[2019-11-16 14:02] LABS: AMPHETAMINES LEVEL URINE NEGATIVE (NEGATIVE); BARBITURATES URINE NEGATIVE (NEGATIVE); BENZODIAZEPINES URINE NEGATIVE (NEGATIVE); CANNABINOIDS URINE POSITIVE (NEGATIVE); COCAINE METABOLITE URINE NEGATIVE (NEGATIVE); METHADONE URINE NEGATIVE (NEGATIVE); OPIATES URINE NEGATIVE (NEGATIVE); PHENCYCLIDINE URINE NEGATIVE (NEGATIVE)
[2019-11-16 14:11] LABS: PROTHROMBIN TIME 12.9 SECONDS (11.8-14.0)
[2019-11-16 14:12] LABS: PARTIAL THROMBOPLASTIN TIME 30.6 SECONDS (25.0-38.4)
[2019-11-16 14:37] LABS: BLOOD UREA NITROGEN 16 MG/DL (7-18); CALCIUM LEVEL 9.1 MG/DL (8.5-10.1); CARBON DIOXIDE LEVEL 22 MEQ/L (21-32); CHLORIDE LEVEL 113 MEQ/L (98-107); CK-MB VALUE MASS 1.3 NG/ML (<3.6); CPK CREATINE PHOSPHOKINASE 115 U/L (39-308); GLOMERULAR FILTRATION RATE > 60.0 (>60); GLUCOSE, FASTING 89 MG/DL (70-100); MAGNESIUM LEVEL 2.3 MG/DL (1.8-2.4); MB/CK RELATIVE INDEX 1.13 (< OR =4); PHOSPHORUS LEVEL 2.8 MG/DL (2.5-4.9); POTASSIUM SERUM 4.3 MEQ/L (3.5-5.1); SODIUM LEVEL 140 MEQ/L (136-145); THYROID STIMULATING HORMONE 0.722 uIU/ML (0.358-3.740); TROPONIN I < 0.02 NG/ML (< 0.10)
[2019-11-16] MEDS ORDERED: methylPREDNISolone INJ 40 MG/1 ML VIAL (J2920) IV ONE (15:00)
[2019-11-16] MEDS ORDERED: methylPREDNISolone 1,000 MG, VIAL MATE ADAPTER 1 EACH in D5W 250 ML IV ONE (15:15)
[2019-11-16] MEDS ORDERED: CYAN100050 PO (15:20)
[2019-11-16] MEDS ORDERED: ROSU40TA4 PO (15:20)
[2019-11-16] MEDS ORDERED: TOPI200T7 PO (15:20)
--- NOTE | 2019-11-16 15:54 | REP ---
CHEST, PORTABLE: There is no evidence of acute infiltrate. No pleural effusion is seen. The heart is normal in size. The mediastinal silhouette is unremarkable. The visualized osseous structures are intact. IMPRESSION: No acute pulmonary disease. Electronically Signed by Fortino Newman MD 11/17/2019 01:36 P
[2019-11-16] MEDS ORDERED: NALOXONE 2MG/2ML SYRINGE (J2310 PER 1MG) PRN (16:00)
--- NOTE | 2019-11-16 16:29 | HPEPDOC ---
[facility] Medical History & Physical Date of Admission Nov 16, 2019 Date of Service: Nov 16, 2019 Attending Physician: KHUSHBOO SANCHEZ MD History and Physical CHIEF COMPLAINT: LLE weakness, L vision changes HISTORY OF PRESENT ILLNESS: 44-year-old M with MS diagnosed in 2013, history of optic neuritis, recent episode of GBS in 04/2019 for which he required plasmapharesis, follows with neurology at [facility], hyperlipidemia, gout, depression, chronic back pain, who presented to the ED reporting the following progressive symptoms over the last 2 months. He reports bilateral LE parasthesia, LLE weakness such that he cannot lift his leg against gravity, has a left foot drop, most in bed and developed a L buttock pressure sore that he I&D'd on his own recently, bilateral UE hand paraesthesias and heaviness, L eye vision with crescent, diplopia with R gaze. Today, he was unable to dress himself and get up such that he decided to present to the ED. In the ED, he was hemodynamically stable, afebrile, denying any recent illness, fever, chills, nausea, emesis, chest pain, weight loss, diarrhea, abdominal pain, recent travel, rashes or acute onset of symptoms. He describes that his sy mptoms have slowly smouldered and worsened over months and he has been in touch with his neurologist occasionally but had dragged the idea of going to [facility] during this covid-19 crisis thus the delay to present. Thus far work up shows normal CBC, WBC 4.8, hgb 13.1, platelets 262, BMP wnl with Cr 0.9, CT head without acute pathology, TSH wnad free T4 wnl, negative troponin, EKG with NSR, CXR wnl, bland UA with tox screen that was positive for marijuana. Neurology was consulted from the ED and recommended admission to medicine and starting 1g solumedrol for 5d and MRI brain w/wo contrast. PAST MEDICAL HISTORY: 1. Generalized anxiety. 2. MS. 3. Hyperlipidemia. 4. Optic neuritis. 5. Gout. 6. Depression. 7. Chronic back pain. 8. Obstructive sleep apnea (TESSA) - no longer on CPAP due to he lost weight PAST SURGICAL HISTORY: 1. Right shoulder surgery. 2. Right knee repair. 3. Right ankle repair. 4. Appendectomy. SOCIAL HISTORY: The patient lives at home with his and two children. Chews tobacco for >10 years. Has occasional alcoholu. Also takes marijuana once per day. FAMILY HISTORY: Noncontributory. REVIEW OF SYSTEMS: GENERAL: No recent weight loss, any fever or chills, any recent traveling, sick contact. HEENT: Diplopia with R gaze. [place] in field of L eye. Turning head to R to correct the diplopia. No changes to smell, hearing, or taste. CARDIOVASCULAR: No chest pain, palpitation, trouble breathing. PULMONARY: Denies any lung disease. The patient does have a history of obstructive sleep apnea, not on CPAP anymore since weight loss GASTROINTESTINAL: No abdominal pain, nausea, vomiting, diarrhea, constipation. Denies any blood in the stool. GENITOURINARY:No blood in the urine, burning on urination, urinary urgency. MUSCULOSKELETAL: Has chronic back pain and neck pain, currently has has L hip pain that shoots to back and down. ENDOCRINE: No polydipsia, polyuria, heat or cold intolerance. PSYCHIATRIC:Has a history of anxiety. NEUROLOGIC: Vision changes as noted in HPI, LE paraesthesias, LLE weakness. PHYSICAL EXAMINATION: VITAL SIGNS: HDS, afebrile, stable on room air GENERAL: NAD, obese HEENT: NCAT, EOMI, MMM NECK: Supple. no adenopathy CARDIOVASCULAR: Regular rate and rhythm. Normal S1, S2. No murmurs. LUNGS: Clear to auscultation bilaterally. No wheezing, rales, or rhonchi. ABDOMEN: Positive bowel sounds, soft, nontender, nondistended. No peritoneal signs. No ecchymosis. EXTREMITIES: No edema, clubbing or cyanosis. Muscle strength was 5/5 in bilateral upper and lower extremities. Deep tendon reflex was 2/4 bilaterally, knees. Babinski was negative bilaterally. SKIN: Warm and dry. NEUROLOGICAL: Cranial nerves II-XII intact. PERRLA. moves head to right to compensate to avoid R gaze diplopia. LLE with 2/5, RLE with 5/5, BLE 5/5 LABORATORY DATA:as noted above. see below IMAGING: The patient had a CT head done without contrast - without acute pathology MRI brain w/wo contrast pending CXR wnl ASSESSMENT AND PLAN: A 44-year-old M with MS, optic neuritis, hyperlipidemia, gout, depression, cervical stenosis and chronic back pain who presented with progressive neurological deficits c/f MS exacerbation. MS exacerbation: -MRI brain w/wo contrast -Neurology was consulted in the ED and recommended 1 gram of methylprednisone, and they will see him patient in the morning. -Neurologic checks every 4 hours. -continue patient's home Topamax, Lyrica, Percocet -CT head was without acute pathology Morbid obesity: Complicates care. -However patient weight loss and no longer on CPAP for TESSA Hyperlipidemia: -Continue home statin. History of optic neuritis: -The patient does have ongoing R gaze diplopia likely secondary to MS, was placed on 1g solumedrol, neurology to see him Gout: -Continue home allopurinol Depression and anxiety: - Continue home buspirone and venlafaxine. DVT ppx: subcutaneous heparin. Diet: regular Dispo: PCU Vital Signs Vital Signs Date Time Temp Pulse Resp B/P (MAP) Pulse Ox O2 Delivery O2 Flow Rate FiO2 11/16/19 14:06 98.2 68 20 99 11/16/19 12:36 159/93 (115) Room Air Laboratory Data Labs 24H Laboratory Tests 2 11/16/19 13:22: Urine Color STRAW, Urine Appearance CLEAR, Urine pH 7.0, Urine Specific [place] 1.004, Urine Protein NEGATIVE, Urine Glucose (UA) NEGATIVE, Urine Ketones NEGATIVE, Urine Blood NEGATIVE, Urine Nitrite NEGATIVE, Urine Bilirubin NEGATIVE, Urine Urobilinogen 0.2, Urine Leukocyte Esterase NEGATIVE, Urine WBC (Auto) 0, Urine RBC (Auto) 0, Urine Hyaline Casts (Auto) 0, Urine Bacteria (Auto) NEGATIVE, Urine Squamous Epithelial Cells 0, Urine Sperm (Auto) , Urine Opiates Screen NEGATIVE, Urine Methadone Screen NEGATIVE, Urine Barbiturates Sc reen NEGATIVE, Urine Phencyclidine Screen NEGATIVE, Urine Amphetamines Screen NEGATIVE, Urine Benzodiazepines Screen NEGATIVE, Urine Cocaine Metabolite Screen NEGATIVE, Urine Cannabinoids Screen POSITIVEH 11/16/19 13:44: Immature Granulocyte % (Auto) 0.4, Neutrophils (%) (Auto) 69.6H, Lymphocytes (%) (Auto) 16.4L, Monocytes (%) (Auto) 12.4H, Eosinophils (%) (Auto) 0.6, Basophils (%) (Auto) 0.6, Neutrophils # (Auto) 3.3, Lymphocytes # (Auto) 0.8L, Monocytes # (Auto) 0.6, Eosinophils # (Auto) 0.0, Basophils # (Auto) 0.0, Nucleated Red Blood Cells % (auto) 0.0, Prothrombin Time 12.9, Prothromb Time International Ratio 1.00, Activated Partial Thromboplast Time 30.6, Anion Gap 5L, Glomerular Filtration Rate > 60.0, Calcium Level 9.1, Phosphorus Level 2.8, Magnesium Level 2.3, Total Creatine Kinase 115, Creatine Kinase MB 1.3, Creatine Kinase MB Relative Index 1.13, Troponin I < 0.02, Thyroid Stimulating Hormone (TSH) 0.722, Free Thyroxine 1.10 CBC/BMP Laboratory Tests 11/16/19 13:44 Home Medications Scheduled Allopurinol (Zyloprim) 100 Mg Tab, 100 MG PO DAILY Buspirone HCl (Buspirone HCl) 10 Mg Tab, 20 MG PO BID Cholecalciferol (Vitamin D3) (Vitamin D3) 25 Mcg Tablet, 50 MCG PO DAILY Cyanocobalamin (Vitamin B-12) (Vitamin B-12) 1,000 Mcg Tablet, 1,000 MCG PO DAILY Fingolimod HCl (Gilenya) 0.5 Mg Cap, 0.5 MG PO DAILY Naloxone HCl (Narcan) 4 Mg [place], 1 SPRAY NA ASDIRECTED Pregabalin (Pregabalin) 75 Mg Capsule, 75 MG PO BID Rosuvastatin Calcium (Rosuvastatin Calcium) 40 Mg Tablet, 40 MG PO QHS Topiramate (Topiramate) 200 Mg Tablet, 100 MG PO BID Venlafaxine HCl (Venlafaxine HCl ER) 75 Mg Cap.er.24h, 75 MG PO DAILY Scheduled PRN Oxycodone HCl/Acetaminophen (Oxycodone-Acetaminophen 5-325) 1 Each Tablet, 2 TAB PO QID PRN for PAIN Allergies Coded Allergies: amantadine (Verified Allergy, Severe, ANAPHYLAXIS, 11/16/19) fentanyl (Verified Adverse Reaction, Mild, hallucinations, 11/16/19) A-FIB/CHADSVASC A-FIB History Current/History of A-Fib/PAF?: No Current PO Anticoag Therapy: No Age/Risk Factor Scoring CHADSVASC: CHADSVASC Response (Comments) Value Age Risk Factor Age < 65 years old 0 Gender Risk Factor Male 0 Hx of CHF No 0 Hx of HTN No 0 Hx of Stroke/TIA/or VTE No 0 Hx of Diabetes No 0 Hx of Vascular Disease No 0 Total 0 Treatment Treatment ordered: NONE Reason Anticoagulant not given: Not indicated/[id number] KHUSHBOO SANCHEZ MD Nov 16, 2019 16:29
[2019-11-16] MEDS ORDERED: PROHANCE 279.3MG/ML 15ML VIAL As Ordered ONE (16:34)
[2019-11-16] MEDS ORDERED: PROHANCE 279.3MG/ML 5ML VIAL As Ordered ONE (16:34)
--- NOTE | 2019-11-16 17:16 | REPVR ---
PROCEDURE INFORMATION: Exam: MR Head Without and With Contrast Exam date and time: 11/16/2019 5:04 PM Age: 44 years old Clinical indication: Weakness, extremity; Left; Additional info: Lle weak ? ms exacerbation TECHNIQUE: Imaging protocol: MR of the head without and with intravenous contrast. Contrast material: Prohance; Contrast volume: 20 ml; Contrast route: IV; COMPARISON: MRI-Brain W/O FOLL BY WITH 07/25/2018 4:33 AM FINDINGS: Brain: Previous DWI hyperintense focus in the left anterior paracentral lobule cortex or subcortical white matter is stable compared with the preceding study. The focus in the right middle frontal gyral subcortical white matter on the prior study is no longer identified. Frontal lobe T2 hyperintense foci measuring 9.2 mm (left; subcortical white matter) and 3.2 mm (right; cortex) are stable. 4.5 mm periventricular T2 hyperintense focus in the left lateral periatrial white matter appears stable. Left lateral ventricular frontal horn 6.2 mm T2 hyperintense periventricular focus appears stable. No abnormal contrast enhancement. Ventricles: No hydrocephalus or evidence of increased intracranial pressure. Bones/joints: Unremarkable. Sinuses: Normal as visualized. No acute sinusitis. Mastoid air cells: Normal as visualized. No mastoid effusion. Orbits: Unremarkable. Soft tissues: Unremarkable. IMPRESSION: Stable appearance of bilateral cerebral white matter and cortical lesions compared to the prior study. Electronically signed by: Garret Mckeon On 11/16/2019 17:16:31 PM
[2019-11-16] MEDS: PERCOCET 5MG/325MG TAB PO PRN (18:07)
[2019-11-16 18:16] VITALS: BP 140/74
[2019-11-16] MEDS ORDERED: NALOXONE INJ 0.4MG/1ML VIAL (J2310 PER 1MG) IV PRN (19:45)
[2019-11-16 20:00] VITALS: BP 144/84
[2019-11-16] MEDS: ROSUVASTATIN 10 MG TAB (CRESTOR) PO SCH (20:05)
[2019-11-16] MEDS: PREGABALIN 75 MG CAP(LYRICA) PO SCH (20:05)
[2019-11-16] MEDS: TOPIRAMATE (TopAMAX) 100 MG TAB PO SCH (20:05)
[2019-11-16] MEDS: busPIRone 10 MG TAB PO SCH (20:05)
[2019-11-16] MEDS: HEPARIN SOD (PORCINE) 5000UNITS/ML VIAL (J1644 PER 1000UNITS) SQ SCH (20:06)
--- NOTE | 2019-11-16 20:46 | ECGEPIP ---
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
[2019-11-17] VITALS: BP 136/67
[2019-11-17 04:00] VITALS: BP 140/60
[2019-11-17 04:28] LABS: HEMATOCRIT 40.4 % (42.0-52.0); HEMOGLOBIN 13.6 g/dl (13.5-17.5); MEAN CORPUSCULAR HEMOGLOBIN 28.6 pg (27.0-33.0); MEAN CORPUSCULAR HGB CONC 33.7 g/dl (32.0-36.5); MEAN CORPUSCULAR VOLUME 85.1 fl (80.0-96.0); PLATELET COUNT, AUTOMATED 282 10^3/uL (150-450); RED BLOOD COUNT 4.75 10^6/uL (4.30-6.10); WHITE BLOOD COUNT 7.3 10^3/uL (4.0-10.0)
[2019-11-17 04:48] LABS: ALBUMIN 4.2 GM/DL (3.2-5.2); ALT/SGPT 39 U/L (12-78); BILIRUBIN,TOTAL 0.9 MG/DL (0.2-1.0); BLOOD UREA NITROGEN 16 MG/DL (7-18); CALCIUM LEVEL 9.2 MG/DL (8.5-10.1); CARBON DIOXIDE LEVEL 21 MEQ/L (21-32); CHLORIDE LEVEL 113 MEQ/L (98-107); CREATININE FOR GFR 0.89 MG/DL (0.70-1.30); GLOMERULAR FILTRATION RATE > 60.0 (>60); GLUCOSE, FASTING 153 MG/DL (70-100); MAGNESIUM LEVEL 2.2 MG/DL (1.8-2.4); POTASSIUM SERUM 4.2 MEQ/L (3.5-5.1); SODIUM LEVEL 141 MEQ/L (136-145); TOTAL PROTEIN 7.4 GM/DL (6.4-8.2)
[2019-11-17] MEDS: HEPARIN SOD (PORCINE) 5000UNITS/ML VIAL (J1644 PER 1000UNITS) SQ SCH ×3 (05:32→20:58)
[2019-11-17 07:31] VITALS: BP 165/85
[2019-11-17] MEDS ORDERED: methylPREDNISolone INJ 125 MG/2 ML VIAL (J2930) IV SCH (09:00)
[2019-11-17] MEDS: busPIRone 10 MG TAB PO SCH ×2 (09:42→20:57)
[2019-11-17] MEDS: methylPREDNISolone 1,000 MG, VIAL MATE ADAPTER 1 EACH in D5W 250 ML IV SCH (09:42)
[2019-11-17] MEDS: TOPIRAMATE (TopAMAX) 100 MG TAB PO SCH ×2 (09:42→20:57)
[2019-11-17] MEDS: PREGABALIN 75 MG CAP(LYRICA) PO SCH ×2 (09:43→20:57)
[2019-11-17] MEDS: VENLAFAXINE **XR** 75MG CAPSULE PO SCH (09:43)
[2019-11-17] MEDS: allopurinoL 100 MG TAB PO SCH (09:43)
[2019-11-17] MEDS: VITAMIN D 1,000 INTERNATIONAL UNITS TABLET PO SCH (09:44)
[2019-11-17] MEDS: CYANOCOBALAMIN 500 MCG TAB PO SCH (09:44)
[2019-11-17 11:52] VITALS: BP 140/66
[2019-11-17] MEDS: KETOROLAC 30 MG/ML 1ML VIAL IV SCH ×2 (14:56→20:58)
[2019-11-17 15:38] VITALS: BP 155/64
[2019-11-17] MEDS: FINGOLIMOD 0.5 MG PO SCH (15:50)
--- NOTE | 2019-11-17 18:18 | IPNPDOC ---
Date Seen The patient was seen on 11/17/19. Progress Note SUBJECTIVE: The patient complains of a frontal headache, diplopia, [id number] visual in his left eye. He complains of feeling "pins and needles" in bilateral lower extremities which is different from shooting pain and hot/cold that he fills the lower extremity normally. He is concerned for developing optic neuritis, as he has had this in the past. Neurology and ophthalmology was contacted and to see patient. Continuing with IV methylprednisolone (Day 2). Patient denies chest pain, shortness of breath, nausea, cough. OBJECTIVE: VITAL SIGNS: Please see below PHYSICAL EXAMINATION: CONSTITUTIONAL: No acute distress, resting comfortably, AAO x 3 EYES: PERRLA, EOM intact HENT, MOUTH: Normocephalic, atraumatic, moist mucous membranes NECK: SUPPLE, no JVD, no lymphadenopathy, no carotid bruit CV: Regular rate and rhythm, S1S2 normal, no murmurs/rubs/gallops RESPIRATORY: Clear to auscultation bilaterally, no rales/rhonchi/wheezes GI: BS positive in 4 quadrants, soft, nontender, nondistended, no rebound or guarding, no organomegaly : Deferred MUSCULOSKELETAL: Pain to deep palpation of left hip, no bruising or swelling or erythema. No cyanosis, clubbing, swelling, joint deformity, extremity edema INTEGUMENTARY: Intact, no rashes, no lesions, no erythema NEUROLOGIC: Cranial Nerves II-XII are intact, strength: Left upper and left lower extremities 23/5, right upper and right lower extremities 4/5. Absent reflexes in RLE, +1 in LLE, GALO, RUE. Sensory and motor intact. Horizontal nystagmus which elicited dizziness and nausea on exam, patient states this is not baseline. PSYCHIATRIC: Mood and affect are normal CURRENT MEDICATIONS: Please see below LABORATORY DATA: Please see below IMAGING: MRI brain: Stable appearance of bilateral cerebral white matter and cortical lesions compared to the prior study. CT head was without acute pathology ASSESSMENT: 44 y/o M admitted with multiple sclerosis flare up, complex migraine headache. PLAN: 1. MS exacerbation. MRI brain w/wo contrast above. Neurology contacted today. C/w 1 gram of methylprednisone x 3 days, neuro checks, Topamax, Lyrica, Percocet. F/u MRI with and w/out of cervical and thoracic spine, ophthalmology consult. 2. Complex migraine headache. Visual changes, parasthesias. ? optic neuritis but denies aura. C/w methlprednisolone IV x 3 days. In addition to topamax, neurology adding amitriptyline. 3. Parasthesias in lower legs bilaterally. Possibly multifactorial to complex migraine headache and MS flare. C/w treatment above, PT/OT. 4. Left hip pain. F/u left hip xr. 5. Hyperlipidemia. C/w home statin. 6. History of optic neuritis. On admission patient had R gaze diplopia likely secondary to MS with horizontal nystagmus today, visual changes including diplopia. C/w treatment above and f/u ophthalmology recs. 7. Gout. Continue home allopurinol 8. Depression and anxiety. C/w home meds. 9. DVT px. Heparin. DISPOSITION: Patient feels steroids helping, f/u ophthalmology and neurology recs. Discharge home when medically improved. VS, I&O, 24H, Ervinbone Vital Signs/I&O Vital Signs Date Time Temp Pulse Resp B/P (MAP) Pulse Ox O2 Delivery O2 Flow Rate FiO2 11/17/19 15:38 98.2 82 18 155/64 (94) 98 Room Air I&O- Last 24 Hours up to 6 AM 11/17/19 06:00 Intake Total 566 ml Output Total 800 ml Balance -234 ml Laboratory Data 24H LABS Laboratory Tests 2 11/17/19 04:04: Nucleated Red Blood Cells % (auto) 0.0, Anion Gap 7L, Glomerular Filtration Rate > 60.0, Calcium Level 9.2, Magnesium Level 2.2, Total Bilirubin 0.9, Aspartate Amino Transf (AST/SGOT) 15, Alanine Aminotransferase (ALT/SGPT) 39, Alkaline Phosphatase 100, Total Protein 7.4, Albumin 4.2, Albumin/Globulin Ratio 1.3 CBC/BMP Laboratory Tests 11/17/19 04:04 Current Medications Current Medications Medications (Trade) Dose Ordered Sig/Isidra Route PRN Reason Start Time Stop Time Status Last Admin Dose Admin Allopurinol (Zyloprim) 100 mg DAILY PO 11/17/19 09:00 11/17/19 09:43 Buspirone HCl (Buspar) 20 mg BID PO 11/16/19 21:00 11/17/19 09:42 Cyanocobalamin (Vitamin B12) 1,000 mcg DAILY PO 11/17/19 09:00 11/17/19 09:44 Heparin Sodium (Porcine) (Heparin) 5,000 units Q8H SQ 11/16/19 22:00 11/17/19 14:55 Home Med (Med Rec Complete!) ASDIRECTED XX 11/16/19 15:30 11/16/19 15:22 DC Ketorolac Tromethamine (ToRADol) 15 mg Q8H IV 11/17/19 14:00 11/22/19 13:59 11/17/19 14:56 Methylprednisolone (SOLUmedrol) 1,000 mg DAILY IV 11/17/19 09:00 11/16/19 15:22 DC Methylprednisolone 1000 mg/IV Miscellaneous Supplies 1 each/ Dextrose 266 ml @ 266 mls/hr DAILY IV 11/17/19 09:00 11/20/19 09:59 11/17/19 09:42 Miscellaneous (Unresolved Patient Own Med Order) SEE LABEL COMMENTS DAILY XX 11/16/19 09:00 11/17/19 15:37 DC Naloxone HCl (Narcan) 0.1 mg Q5MP PRN IV SEE COMMENTS 11/16/19 19:45 Naloxone HCl (Narcan) 2 mg ASDIRECTED PRN NA drowsy, unresponsiveness 11/16/19 16:00 11/16/19 19:30 DC Oxycodone/ Acetaminophen (Percocet 5mg/ 325mg Tablet) 2 tab QIDP PRN PO PAIN 11/16/19 16:00 11/16/19 18:07 Patient Own Medication (Patient'S Own Med) Fingolimod 0.5mg caps... DAILY PO 11/17/19 09:00 11/17/19 15:50 Pregabalin (Lyrica) 75 mg BID PO 11/16/19 21:00 11/17/19 09:43 Rosuvastatin Calcium (Crestor) 40 mg QHS PO 11/16/19 21:00 11/16/19 20:05 Topiramate (TopAMAX) 100 mg BID PO 11/16/19 21:00 11/17/19 09:42 Venlafaxine HCl (Effexor Xr) 75 mg DAILY PO 11/17/19 09:00 11/17/19 09:43 Vitamin D (Vitamin D) 2,000 units DAILY PO 11/17/19 09:00 11/17/19 09:44 Allergies Coded Allergies: amantadine (Verified Allergy, Severe, ANAPHYLAXIS, 11/16/19) fentanyl (Verified Adverse Reaction, Mild, hallucinations, 11/16/19) Blossom Burger MD Nov 17, 2019 18:18
[2019-11-17] MEDS: PERCOCET 5MG/325MG TAB PO PRN (18:51)
[2019-11-17] MEDS ORDERED: PROHANCE 279.3MG/ML 5ML VIAL As Ordered ONE (20:05)
[2019-11-17] MEDS ORDERED: PROHANCE 279.3MG/ML 15ML VIAL As Ordered ONE (20:05)
[2019-11-17] MEDS: ROSUVASTATIN 10 MG TAB (CRESTOR) PO SCH (20:57)
[2019-11-17 21:00] VITALS: BP 131/66
[2019-11-17] MEDS ORDERED: AMITRIPTYLINE 25 MG TAB PO SCH (21:00)
--- NOTE | 2019-11-17 21:00 | REPVR ---
PROCEDURE INFORMATION: Exam: MR Cervical Spine Without and With Contrast Exam date and time: 11/17/2019 8:44 PM Age: 44 years old Clinical indication: Condition or disease; Patient HX: MS flare TECHNIQUE: Imaging protocol: Multiplanar magnetic resonance images of the cervical spine without and with intravenous contrast. Contrast material: PROHANCE; Contrast volume: 20 ml; Contrast route: 22G; COMPARISON: MRI-Spine,Cervical without con 11/29/2015 2:43 PM FINDINGS: Vertebrae: There is straightening of the normal cervical lordosis. There is no fracture or subluxation. The vertebral body heights are preserved. Marrow: No infiltrative marrow replacing process is noted. There is no evidence for discitis or osteomyelitis. Spinal cord: There are subtle regions of mildly T2 hyperintense signal in the spinal cord at the C4 and C5 levels without abnormal enhancement. No enhancing lesion is noted in the spinal cord. There is no spinal cord compression. Spinal epidural space: There is no abnormal epidural fluid collection. C2-C3: The disc height is preserved. No disc herniation, spinal canal stenosis, or neural foraminal stenosis is noted. The facet joints are unremarkable. C3-C4: The disc height is preserved. There is a mild broad-based posterior protrusion. No spinal canal or neural foraminal stenosis is noted. The facet joints are unremarkable. C4-C5: There is mild loss of disc height, a mild central protrusion with associated annular fissuring, and endplate spurs projecting anteriorly. No spinal canal or neural foraminal stenosis is noted. The facet joints are unremarkable. C5-C6: The disc height is preserved. There is a right paracentral protrusion, right uncovertebral hypertrophy, and endplate spurs projecting anteriorly. There is moderate stenosis of the right lateral recess. No spinal canal or neural foraminal stenosis is noted. The facet joints are unremarkable. C6-C7: There is mild loss of disc height, endplate edema on both sides of the disc space, a broad-based posterior protrusion, left uncovertebral hypertrophy, and endplate spurs projecting anteriorly. There is mild left neural foraminal stenosis. No spinal canal or right neural foraminal stenosis is noted. The facet joints are unremarkable. C7-T1: The disc height is preserved. No disc herniation, spinal canal stenosis, or neural foraminal stenosis is noted. The facet joints are unremarkable. T1-T2: The disc height is preserved. No disc herniation, spinal canal stenosis, or neural foraminal stenosis is noted. The facet joints are unremarkable. Vertebral arteries: Expected flow voids in the vertebral arteries. Soft tissues: Unremarkable. There is no evidence for a ligamentous sprain or muscular strain. No soft tissue fluid collection is noted. IMPRESSION: 1. Subtle regions of mildly T2 hyperintense signal in the spinal cord at the C4 and C5 levels without abnormal enhancement, which have developed since the prior MRI cervical spine on 11/29/2015 and are in keeping with the patient's history of multiple sclerosis. 2. C5-C6: Moderate stenosis of the right lateral recess. 3. C6-C7: Mild left neural foraminal stenosis. Electronically signed by: Anuel Nettles On 11/17/2019 21:00:07 PM
--- NOTE | 2019-11-17 21:00 | REPVR ---
PROCEDURE INFORMATION: Exam: MR Thoracic Spine Without and With Contrast Exam date and time: 11/17/2019 8:44 PM Age: 44 years old Clinical indication: Condition or disease; Patient HX: MS flare TECHNIQUE: Imaging protocol: Multiplanar magnetic resonance images of the thoracic spine without and with intravenous contrast. Contrast material: PROHANCE; Contrast volume: 20 ml; Contrast route: 22; COMPARISON: MRI-Spine,Thoracic without contrast 11/29/2015 8:39 PM FINDINGS: Vertebrae: The sagittal alignment of the thoracic spine is within normal limits. No fracture or subluxation is noted. The vertebral body heights are preserved. Marrow: The bone marrow signal is unremarkable. No infiltrative marrow replacing process or abnormal enhancing lesion is noted. There is no evidence for discitis or osteomyelitis. Epidural space: No abnormal epidural fluid collection is noted. Spinal cord: Normal. No cord compression. No abnormal enhancement. Discs/Spinal canal/Neural foramina: The disc heights are preserved. No disc herniation, spinal canal stenosis, or neural foraminal stenosis is noted at any of the imaged levels. The facet joints are unremarkable. There are endplate spurs at several levels in the thoracic spine. Soft tissues: Unremarkable. There is no evidence for a ligamentous sprain or muscular strain. No soft tissue fluid collection is noted. IMPRESSION: 1. No evidence for demyelinating disease in the thoracic spine. 2. No disc herniation, spinal canal stenosis, neural foraminal stenosis, nerve root impingement, or spinal cord compression in the thoracic spine. Electronically signed by: Anuel Nettles On 11/17/2019 20:59:56 PM
[2019-11-18] VITALS: BP 121/58
--- NOTE | 2019-11-18 01:35 | REP ---
Clinical: Left hip pain. Technique: Neutral and frog lateral views of the left hip. Findings: Mild age-related changes include increased sclerosis to the acetabular roof with subtle marginal spurring. The joint space appears relatively normal. Proximal femur is normal. No periarticular calcifications. No fracture or dislocation. Impression: Mild age-related changes. Electronically Signed by Eber Gonzalez MD 11/18/2019 01:27 A
[2019-11-18 04:00] VITALS: BP 136/77
[2019-11-18 04:00] LABS: HEMATOCRIT 39.4 % (42.0-52.0); HEMOGLOBIN 13.7 g/dl (13.5-17.5); MEAN CORPUSCULAR HEMOGLOBIN 29.8 pg (27.0-33.0); MEAN CORPUSCULAR HGB CONC 34.8 g/dl (32.0-36.5); MEAN CORPUSCULAR VOLUME 85.8 fl (80.0-96.0); PLATELET COUNT, AUTOMATED 287 10^3/uL (150-450); RED BLOOD COUNT 4.59 10^6/uL (4.30-6.10)
[2019-11-18 04:32] LABS: ALBUMIN 4.1 GM/DL (3.2-5.2); ALT/SGPT 54 U/L (12-78); BILIRUBIN,TOTAL 0.5 MG/DL (0.2-1.0); BLOOD UREA NITROGEN 27 MG/DL (7-18); CALCIUM LEVEL 9.4 MG/DL (8.5-10.1); CARBON DIOXIDE LEVEL 23 MEQ/L (21-32); CHLORIDE LEVEL 113 MEQ/L (98-107); CREATININE FOR GFR 0.98 MG/DL (0.70-1.30); GLOMERULAR FILTRATION RATE > 60.0 (>60); GLUCOSE, FASTING 145 MG/DL (70-100); POTASSIUM SERUM 4.5 MEQ/L (3.5-5.1); SODIUM LEVEL 145 MEQ/L (136-145); TOTAL PROTEIN 6.9 GM/DL (6.4-8.2)
[2019-11-18] MEDS: HEPARIN SOD (PORCINE) 5000UNITS/ML VIAL (J1644 PER 1000UNITS) SQ SCH ×2 (04:49→13:17)
[2019-11-18] MEDS: KETOROLAC 30 MG/ML 1ML VIAL IV SCH ×2 (04:49→13:18)
[2019-11-18] MEDS: FINGOLIMOD 0.5 MG PO SCH (04:56)
[2019-11-18] MEDS ORDERED: TROPICAMIDE 0.5% OPHTH SOLN 15 ML OS ONE (06:00)
[2019-11-18] MEDS ORDERED: PHENYLEPHRINE 2.5% OPHTH SOL 2ML OS ONE (06:00)
--- NOTE | 2019-11-18 07:19 | CR ---
DATE OF CONSULTATION: 11/18/2019 REASON FOR CONSULTATION: Ophthalmology consultation regarding suspected left optic neuritis. HISTORY OF PRESENT ILLNESS: This is a 44-year-old male with history of multiple sclerosis for about the past 20 years previously maintained on Tecfidera. He states he was switched over to GILENYA about one year ago. He does have prior history of optic neuritis on the left side with most recent flare back in the Fall of 2018. He does follow routinely with an special [facility] who does perform formal visual field studies and he denies any awareness of subsequent visual field defects following previous optic neuritis. He does have long standing history of intermittent diplopia treated with prism glasses. The patient is currently admitted regarding a newly suspected optic neuritis flare on the left side which he states there is some minimal left frontal headache. He does describe some worsening diplopia even with his prism glasses on and minimal to zero eye pain and there is no pain with movement. He denies any visual changes. DICTATION CUT OFF AT THIS POINT. LANA
[2019-11-18 08:00] VITALS: BP 136/78
--- NOTE | 2019-11-18 08:31 | CR ---
DATE OF CONSULTATION: 11/18/2019 CONSULTATION FOR: Dr. Burger. REASON FOR CONSULTATION: Suspected multiple sclerosis (MS) exacerbation. 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 The patient presents with chief complaint of experiencing an arch-like visual disturbance in his left visual field associated with a throbbing pounding left frontal headache which only got worse. The patient then suddenly felt heaviness in his arms. He also started to feel paresthesias in his thighs traveling down his legs bilaterally during this headache. His headache has gotten a little bit better since this hospital admission. MRI of the brain was requested from the emergency department with and without contrast to check for any MS exacerbation which was negative. The patient was started on Solu-Medrol 1 gram daily in case he had any other active lesions. The patient's symptoms of headache started to improve. For his migraine management, he is on 100 mg topiramate twice a day. He is agreeable to go ahead and add amitriptyline 25 mg at bedtime which he has taken n the past in addition to the topiramate. The patient does suffer with insomnia, neuropathic pain and four to five breakthrough migraines per week. The patient did have a head CT, which was negative. MRI of the cervical spine ended up showing C4 cervical spine lesion without enhancement suggesting old lesion consistent with MS. Thoracic MRI was negative for any lesions. Since 2016, the cervical spine lesion is new. The patient has baseline left lower extremity weakness which is still present on examination today. Other than this, the patient states he is at his baseline neurological state. He follows with Dr. Kaila Suero at the [facility]. Will need to followup with her again after this admission. PAST MEDICAL HISTORY: Relapsing remitting multiple sclerosis. History of migraine headaches. History of Guillain-Ashburn syndrome fall 2018 status post plasmapheresis. Right shoulder surgery. Knee surgery. Ankle surgery. Appendectomy. Depression. Gout. ALLERGIES: None. SOCIAL HISTORY: The patient chews tobacco. Denies use any alcohol or illicit drugs. HOME MEDICATIONS: include - topiramate on mg by mouth twice a day - Gilenya daily - Lyrica FAMILY HISTORY: Noncontributory. PHYSICAL EXAMINATION: The patient is awake, alert, oriented to person, place and time. Speech language comprehension, repetition are intact. Pupils are 3 mm round, reactive to light. Extraocular movements are intact in all directions with baseline right gaze diplopia. Sensation V1-V2 V3 is intact to light touch bilaterally. Tongue is midline. Palate elevates symmetrically. Facial activation is preserved. Hearing is subjectively equal to finger rub. There is no weakness of sternocleidomastoids bilaterally. There is no pronator drift. Strength in the upper extremities is normal. Strength in the lower extremities is 5/5 with exception of the left quadriceps, which is 5-, as well as tibialis anterior which is 4+ on the left. Babinski signs are absent. Deep tendon reflexes are 1 at the Achilles, 2+ at the patellas, biceps, triceps. Sensory is intact to light touch in all four extremities with decreased light touch perception in the thighs and lower legs affecting both L5-S1 distributions both legs. There is no sensory level on examination. There is no ataxia, dysmetria. There is no resting or postural tremors. Romberg testing is positive. The patient does seem to tend to fall towards the bed when standing up. Gait is antalgic favoring the right leg. ASSESSMENT: 1. Sudden visual change of the left eye associated with throbbing headache consistent with migraine with aura with complex features including paresthesias of the arms and legs and heaviness sensation. 2. No evidence of active demyelination given history of relapsing multiple sclerosis. 3. History of lumbosacral spondylosis and stenosis with prior documented radiculopathy residual paresthesias lower extremities and residual weakness of the lower extremity secondary to Guillain-Ashburn syndrome in the fall of 2019 with resolution of prior documented loss of reflexes. PLAN: 1. Finish out 3 days of Solu-Medrol 1 gram each day. 2. Start amitriptyline 25 mg by mouth nightly. 3. Continue topiramate 100 mg by mouth twice a day. 4. Continue pain management. 5. Continue Gilenya. Followup with followup with Dr. Ott in the [facility] at the 6. Physical therapy (PT), occupational therapy (OC) evaluation. 6. Followup with Dr. Kaila Suero at the [facility] as scheduled.
[2019-11-18] MEDS: methylPREDNISolone 1,000 MG, VIAL MATE ADAPTER 1 EACH in D5W 250 ML IV SCH (09:25)
[2019-11-18] MEDS: busPIRone 10 MG TAB PO SCH (09:25)
[2019-11-18] MEDS: allopurinoL 100 MG TAB PO SCH (09:25)
[2019-11-18] MEDS: PREGABALIN 75 MG CAP(LYRICA) PO SCH (09:25)
[2019-11-18] MEDS: TOPIRAMATE (TopAMAX) 100 MG TAB PO SCH (09:25)
[2019-11-18] MEDS: CYANOCOBALAMIN 500 MCG TAB PO SCH (09:25)
[2019-11-18] MEDS: VITAMIN D 1,000 INTERNATIONAL UNITS TABLET PO SCH (09:25)
[2019-11-18] MEDS: VENLAFAXINE **XR** 75MG CAPSULE PO SCH (09:25)
[2019-11-18] MEDS ORDERED: AMIT25TA PO (12:08)
--- NOTE | 2019-11-18 18:40 | DS.PDOC ---
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 He reports bilateral LE parasthesia, LLE weakness such that he cannot lift his leg against gravity, has a left foot drop, most in bed and developed a L buttock pressure sore that he I&D'd on his own recently, bilateral UE hand paraesthesias and heaviness, L eye vision with crescent, diplopia with R gaze. Today, he was unable to dress himself and get up such that he decided to present to the ED. In the ED, he was hemodynamically stable, afebrile, denying any recent illness, fever, chills, nausea, emesis, chest pain, weight loss, diarrhea, abdominal pain, recent travel, rashes or acute onset of symptoms. He describes that his symptoms have slowly smouldered and worsened over months and he has been in touch with his neurologist occasionally but had dragged the idea of going to [place] during this covid-19 crisis thus the delay to present. Thus far work up shows normal CBC, WBC 4.8, hgb 13.1, platelets 262, BMP wnl with Cr 0.9, CT head without acute pathology, TSH wnad free T4 wnl, negative troponin, EKG with NSR, CXR wnl, bland UA with tox screen that was positive for marijuana. Neurology was consulted from the ED and recommended admission to medicine and starting 1g solumedrol for 5d and MRI brain w/wo contrast. HOSPITAL COURSE: Patient complained of vision changes including crescent shapes seen in the left eye and diplopia when trying to see things far away. With history of optic neuritis, ophthalmology and neurology saw patient. Ophthalmology could not rule out optic neuritis of the left eye; however, the patient had received 3 days of IV steroids and was advised to follow-up with ophthalmology as outpatient if symptoms do not improve after treatment. Neurology assessed the patient recommended amitriptyline in addition to already existing treatment due to concern for complex migraine. The patient had been having a frontal headache w ith lower extremity paresthesias believed to be associated with the migraine. They also could not rule out increased paresthesias secondary to MS flare and prior Guillain-Carpio infection. MRI of the brain did not show change from prior on file. Thoracic MRI was negative for lesions and cervical MRI showed possible increase of hyperintensities when compared to last MRI from 2016. The patient admitted to having MRIs since 2016 sodas unknown if these hyperintensity are new or stable. He was advised to follow-up with his neurologist and request these MRIs to compare. Over the course of his 2 days here the patient improved markedly with IV Solu-Medrol. Left hip pain was present on admission, hip x-ray was negative for acute findings. On 11/18/2019 the patient's headache and markedly improved with the addition of amitriptyline and his lower extremity weakness was at baseline. Physical and occupational therapy cleared the patient for home. The patient is discharged today with follow-up with his neurologist at the [facility] in [place] and his primary care provider. PAST MEDICAL HISTORY: 1. Generalized anxiety. 2. MS. 3. Hyperlipidemia. 4. Optic neuritis. 5. Gout. 6. Depression. 7. Chronic back pain. 8. Obstructive sleep apnea (TESSA) - no longer on CPAP due to he lost weight PAST SURGICAL HISTORY: 1. Right shoulder surgery. 2. Right knee repair. 3. Right ankle repair. 4. Appendectomy. SOCIAL HISTORY: The patient lives at home with his and two children. Chews tobacco for >10 years. Has occasional alcoholu. Also takes marijuana once per day. FAMILY HISTORY: Noncontributory. DISCHARGE MEDICATIONS: Please see below. PHYSICAL EXAMINATION: CONSTITUTIONAL: No acute distress, resting comfortably, AAO x 3 EYES: PERRLA, EOM intact HENT, MOUTH: Normocephalic, atraumatic, moist mucous membranes NECK: SUPPLE, no JVD, no lymphadenopathy, no carotid bruit CV: Regular rate and rhythm, S1S2 normal, no murmurs/rubs/gallops RESPIRATORY: Clear to auscultation bilaterally, no rales/rhonchi/wheezes GI: BS positive in 4 quadrants, soft, nontender, nondistended, no rebound or guarding, no organomegaly : Deferred MUSCULOSKELETAL: Pain to deep palpation of left hip improved. No bruising or swelling or erythema. No cyanosis, clubbing, swelling, joint deformity, extremity edema INTEGUMENTARY: Intact, no rashes, no lesions, no erythema NEUROLOGIC: Cranial Nerves II-XII are intact, strength: Left upper and left lower extremities 3-4/5, right upper and right lower extremities 5/5. Absent reflexes all extremities today. Sensory and motor intact. Horizontal nystagmus resolved. PSYCHIATRIC: Mood and affect are normal CURRENT MEDICATIONS: Please see below LABORATORY DATA: Please see below IMAGING: MRI brain: Stable appearance of bilateral cerebral white matter and cortical lesions compared to the prior study. MRI thoracic and cervical spine- please see under transcriptions. CT head was without acute pathology ASSESSMENT: 44 y/o M treated for multiple sclerosis flare up, complex migraine headache. PLAN: 1. MS exacerbation. Improved. MRI brain w/wo contrast above, questionable new areas of hyperintensities on MRI cervical spine. S/p 3 days IV methylprednisone, back to baseline neurologically. C/w home medications and he is to f/u with neurologist in [facility], PCP. 2. Complex migraine headache. Visual changes, parasthesias likely associated. C/w topamax, amitriptyline. 3. Vision changes, cannot r/o optic neuritis. Improving visual changes per patient, ophthalmology could not definitively rule out but essentially patient was treated with IV steroids already. If vision changes worsen or return, he should notify neurologist or be seen in ER quickly. 4. Parasthesias in lower legs bilaterally. Possibly multifactorial to complex migraine headache and MS flare. C/w treatment above. 4. Left hip pain, improved. Left hip xr neg for acute issue. 5. Hyperlipidemia. C/w home statin. 6. Gout. Continue home allopurinol 7. Depression and anxiety. C/w home meds. DISPOSITION: Much improved today. Discharged home and encouraged to f/u with PCP, neurologist in [facility]. TIME SPENT ON DISCHARGE: Greater than 30 minutes. Vital Signs/I&Os Vital Signs Date Time Temp Pulse Resp B/P (MAP) Pulse Ox O2 Delivery O2 Flow Rate FiO2 11/18/19 08:00 97.7 60 18 136/78 (97) 99 Room Air I&O- Last 24 Hours up to 6 AM 6/3/20 06:00 Intake Total 1320 ml Output Total 200 ml Balance 1120 ml Laboratory Data Labs 24H Laboratory Tests 2 11/18/19 03:39: Nucleated Red Blood Cells % (auto) 0.0, Anion Gap 9, Glomerular Filtration Rate > 60.0, Calcium Level 9.4, Total Bilirubin 0.5, Aspartate Amino Transf (AST/SGOT) 14, Alanine Aminotransferase (ALT/SGPT) 54, Alkaline Phosphatase 92, Total Protein 6.9, Albumin 4.1, Albumin/Globulin Ratio 1.5 CBC/BMP Laboratory Tests 11/18/19 03:39 Discharge Medications Scheduled Allopurinol (Zyloprim) 100 Mg Tab, 100 MG PO DAILY, (Reported) Amitriptyline HCl (Amitriptyline HCl) 25 Mg Tablet, 25 MG PO QHS Buspirone HCl (Buspirone HCl) 10 Mg Tab, 20 MG PO BID, (Reported) Cholecalciferol (Vitamin D3) (Vitamin D3) 25 Mcg Tablet, 50 MCG PO DAILY, (Reported) Cyanocobalamin (Vitamin B-12) (Vitamin B-12) 1,000 Mcg Tablet, 1,000 MCG PO DAILY, (Reported) Fingolimod HCl (Gilenya) 0.5 Mg Cap, 0.5 MG PO DAILY, (Reported) Naloxone HCl (Narcan) 4 Mg [place], 1 SPRAY NA ASDIRECTED, (Reported) Pregabalin (Pregabalin) 75 Mg Capsule, 75 MG PO BID, (Reported) Rosuvastatin Calcium (Rosuvastatin Calcium) 40 Mg Tablet, 40 MG PO QHS, (Reported) Topiramate (Topiramate) 200 Mg Tablet, 100 MG PO BID, (Reported) Venlafaxine HCl (Venlafaxine HCl ER) 75 Mg Cap.er.24h, 75 MG PO DAILY, (Reported) Scheduled PRN Oxycodone HCl/Acetaminophen (Oxycodone-Acetaminophen 5-325) 1 Each Tablet, 2 TAB PO QID PRN for PAIN, (Reported) Allergies Coded Allergies: amantadine (Verified Allergy, Severe, ANAPHYLAXIS, 11/16/19) fentanyl (Verified Adverse Reaction, Mild, hallucinations, 11/16/19) Blossom Burger MD Nov 18, 2019 18:40
--- NOTE | 2019-11-19 01:27 | CR ---
DATE OF CONSULTATION: 11/18/2019 OPHTHALMOLOGY CONSULTATION REGARDING: Suspected left optic neuritis. HISTORY OF PRESENT ILLNESS: 44-year-old male with a diagnosis of multiple sclerosis since 2014 following an optic neuritis flare. He states he has had several optic neuritis attacks on the left side, maybe even dating back when he was in his 20's. He was previously on Tecfidera but has now been on Gilenya for about 1 year. His most recent flare of optic neuritis was in the Fall of 2018 where he was treated at [facility]. He denies any awareness of a subsequent visual field defect regarding the previous optic neuritis episodes. He does follow with an emerging technologies director at the [facility], who apparently checks visual emmanuel and performs optic nerve imaging as well. He does have a longstanding history of intermittent diplopia, which has been worsened on this admission, he uses prism glasses. He admits to a left-sided headache, worsening diplopia, and minimal eye pain with movement. Denies any visual changes. PAST OCULAR HISTORY: He wears prism glasses and distance corrective lenses. distance vision. He denies any previous ocular surgery, and he does not use any eye drops. PREVIOUS MEDICAL HISTORY: Includes: 1. Generalized anxiety disorder. 2. Multiple sclerosis, on Gilenya for the past 1 year. Previously maintained on Tecfidera. 3. Hyperlipidemia. 4. Optic neuritis 5. Gout. 6. Depression. 7. Chronic back pain. 8. Obstructive sleep apnea. PAST SURGICAL HISTORY: 1. Right shoulder surgery. 2. Right knee repair. 3. Right ankle repair. 4. Appendectomy. SOCIAL HISTORY: Patient lives at home with his and two children. He does chew tobacco for the past 10 years. He uses alcohol and marijuana occasionally. REVIEW OF SYSTEMS: GENERAL: No recent weight loss, fever, or chills. No recent travel. HEENT: He has diplopia with right gaze. Denies any eye pain or visual changes, hearing loss or difficulty swallowing CARDIOVASCULAR: No chest pain, palpitations PULMONARY: Denies shortness of breath or nocturnal dyspnea. ABDOMEN: No abdominal pain, nausea, vomiting, diarrhea. No blood in his urine MUSCULOSKELETAL: He has chronic back pain, left hip pain. PHYSICAL EXAMINATION: (Limited bedside exam with indirect illuminated) The patient was checked with his prism and distance correction glasses. VA OD and OS individually able to read the time from approximately 15 feet away Pupils: pharmacologically dilated in the left eye, but there is no afferent pupillary defect (APD) in the right eye and no APD by reverse in the left eye. Extraocular muscles are full in the right eye. In the left eye, there is some right gaze restriction and, on abduction, there is some mild abducting nystagmus in the left eye. There is no upgaze restriction or downgaze restriction. Confrontation visual emmanuel are full to count fingers bilaterally. Lids, lashes, and adnexa are completely normal. There is no ptosis. No dermatochalasis, no lesions, no rash. Conjunctiva and sclerae are white and quiet both eyes. Cornea is clear both eyes. Anterior segment appears deep and clear both eyes. Iris is blue and flat. Dilated fundus exam of the left eye reveals a sharp, pink, flat optic nerve. Cup-to-disc ratio of approximately 0.35 with no evidence of hemorrhage or optic nerve edema. The macula appears flat with no exudates or hemorrhages. Periphery appears normal with no breaks, tears, or retinal detachments. The vitreous is clear. IMAGING: The patient had a CT of the head performed without contrast, which did not show any acute pathology. MRI of the brain with and without contrast was performed and revealed no evidence of new brain lesions. There is a comment on previous hyperintense focus in the left anterior paracentral lobule, which is stable compared to a previous study. There is actually some resolution of a foci in the right middle frontal gyral subcortical white matter, and this was compared to previous studies as well. He does have multiple different foci in the periatrial white matter. Otherwise, his study appears to be stable. ASSESSMENT AND PLAN: 1. Suspected optic neuritis flare left eye 2. History of multiple sclerosis (MS), on Gilenya. 3. Diplopia, treated with prism glasses Patient currently is receiving 1 gram of intravenous Solu-Medrol daily. He is on day 3 of 3. MRI was completed showing no new lesions regarding this recent flare. There is no evidence of optic nerve involvement on the MRI or on examination. A large percentage of patients with optic neuritis however do present with retrobulbar involvement of the optic nerve and will have an entirely normal optic nerve exam. I recommend that the patient continue as an outpatient with oral steroids. Once he finishes IV steroid regimen, he needs continued outpatient follow up. I would suggest he has updated visual field following this new flare. Regarding his diplopia, he is still having some symptoms of early in the morning and late at night even with prism correction. He may potentially require workup for other etiologies of diplopia given the somewhat fluctuating and intermittent nature of his symptoms, such as thyroid eye disease, myasthenia gravis, etc. Please call if there are any changes to this patient's status. Thank you for this consultation. LANA
== END 2019-11-18 14:47 | disposition home health service (06) | DRG 59 ==
LOC: M ED 12:34 → M ED INP 15:14 → ENRESERV 15:26 → M PCU 18:12
PROVIDERS: ADMIT Internal Medicine; ATTEND Internal Medicine
DX: G35 Multiple sclerosis (principal); H46.9 Unspecified optic neuritis; G43.109 Migraine with aura, not intractable, without status migrainosus; I10 Essential (primary) hypertension; E78.5 Hyperlipidemia, unspecified; F32.9 Major depressive disorder, single episode, unspecified; M10.9 Gout, unspecified; M54.5 Low back pain; F41.1 Generalized anxiety disorder; G47.33 Obstructive sleep apnea (adult) (pediatric); Z79.899 Other long term (current) drug therapy; Z88.8 Allergy status to other drugs, medicaments and biological substances; E66.01 Morbid (severe) obesity due to excess calories; H53.2 Diplopia; H55.00 Unspecified nystagmus

== ENCOUNTER → 2019-12-29 | Outpatient (CLI) | payer OTHER ==
[~2019-12-29] MED LIST changes: +AMIT25TA PO; +CYAN100050 PO; +NARC1SPR; +OXYC1TAB23 PO; +PRAZ1CAP; +PREG75CA2 PO; +ROSU40TA4 PO; +TOPI200T7 PO; +VENL75CA47 PO; +VITA-122 PO
== END ==
LOC: M LABSMTC 12:22
PROVIDERS: ATTEND Family Medicine
DX: Z03.818 Encounter for observation for suspected exposure to other biological agents ruled out (principal); Z11.59 Encounter for screening for other viral diseases
CPT/HCPCS: C9803; U0003

== ENCOUNTER → 2022-02-16 | Outpatient (CLI) | payer OTHER ==
[~2022-02-16] MED LIST changes: -AMIT25TA PO; +AMIT25TA17 PO; +GABA-282 PO; +GABA-283 PO; -GABA-843 PO; -GABA-845 PO; +OMEP40CA4 PO; -OMEP40CA97 PO; -TOPI25CA3 PO; +TOPI25CA5 PO; -VITA-122 PO; +VITA-168 PO
== END ==
LOC: M PLARAD 08:15
PROVIDERS: ATTEND Psychiatry & Neurology Neurology
DX: G35 Multiple sclerosis (principal); G37.9 Demyelinating disease of central nervous system, unspecified; M50.30 Other cervical disc degeneration, unspecified cervical region; M50.21 Other cervical disc displacement, high cervical region; M50.222 Other cervical disc displacement at C5-C6 level

== ENCOUNTER 2022-09-10 10:01 | Emergency (ER) | payer OTHER ==
[~2022-09-10] VITALS: Ht 175.3 cm; Wt 101.4 kg
[2022-09-10] MEDS ORDERED: MORPHINE 4 MG/ML 1ML VIAL IV ONE (12:40)
[2022-09-10] MEDS ORDERED: NS 1,000 ML IV ONE (12:45)
[2022-09-10 13:21] LABS: BASO % 0.3 % (0.0-1.0); EOS % 0.2 % (0.0-3.0); HEMATOCRIT 41.2 % (42.0-52.0); HEMOGLOBIN 13.5 g/dl (13.5-17.5); LYMPH # 1.6 10^3/uL (1.5-5.0); LYMPH % 13.7 % (24.0-44.0); MEAN CORPUSCULAR HEMOGLOBIN 29.2 pg (27.0-33.0); MEAN CORPUSCULAR HGB CONC 32.8 g/dl (32.0-36.5); MONO # 0.7 10^3/uL (0.0-0.8); MONO % 6.5 % (2.0-8.0); NEUTROPHILS # 8.9 10^3/uL (1.5-8.5); NEUTROPHILS % 78.9 % (36.0-66.0); PLATELET COUNT, AUTOMATED 294 10^3/uL (150-450); RED BLOOD COUNT 4.63 10^6/uL (4.30-6.10); WHITE BLOOD COUNT 11.3 10^3/uL (4.0-10.0)
[2022-09-10 13:37] LABS: C REACTIVE PROTEIN QUANTITATIV < 0.40 MG/DL (<1.0)
[2022-09-10 13:39] LABS: BLOOD UREA NITROGEN 17 MG/DL (9-23); CALCIUM LEVEL 9.2 MG/DL (8.5-10.1); CARBON DIOXIDE LEVEL 24 MMOL/L (20-31); CHLORIDE LEVEL 109 MMOL/L (98-107); CREATININE FOR GFR 0.84 MG/DL (0.70-1.30); GLOMERULAR FILTRATION RATE > 60.0 (>60); GLUCOSE, FASTING 87 MG/DL (60-100); POTASSIUM SERUM 4.4 MMOL/L (3.5-5.1); SODIUM LEVEL 140 MMOL/L (136-145)
[2022-09-10 14:05] LABS: ERYTHROCYTE SEDIMENTATION RATE 8 mm/hr (0-15)
[2022-09-10] MEDS ORDERED: PRED10TA2 PO (14:50)
[2022-09-10 14:58] VITALS: BP 143/80
== END 2022-09-10 15:03 | disposition home or self-care (01) ==
LOC: M ED 10:01
DX: S39.012A Strain of muscle, fascia and tendon of lower back, initial encounter (principal); W18.40XA Slipping, tripping and stumbling without falling, unspecified, initial encounter; M25.78 Osteophyte, vertebrae; M51.36 Other intervertebral disc degeneration, lumbar region; Z79.899 Other long term (current) drug therapy; Z88.8 Allergy status to other drugs, medicaments and biological substances

== ENCOUNTER 2022-12-10 09:42 | Emergency (ER) | payer OTHER ==
[~2022-12-10 09:42] MED LIST changes: +CYAN-1 PO; -CYAN100050 PO; +PRED10TA2 PO
[2022-12-10 10:27] LABS: BASO % 0.7 % (0.0-1.0); EOS # 0.1 10^3/uL (0.0-0.5); EOS % 2.2 % (0.0-3.0); HEMATOCRIT 43.6 % (42.0-52.0); HEMOGLOBIN 14.2 g/dl (13.5-17.5); LYMPH # 1.1 10^3/uL (1.5-5.0); LYMPH % 20.8 % (24.0-44.0); MEAN CORPUSCULAR HEMOGLOBIN 29.6 pg (27.0-33.0); MEAN CORPUSCULAR HGB CONC 32.6 g/dl (32.0-36.5); MONO % 18.6 % (2.0-8.0); NEUTROPHILS # 3.1 10^3/uL (1.5-8.5); NEUTROPHILS % 57.5 % (36.0-66.0); PLATELET COUNT, AUTOMATED 258 10^3/uL (150-450); RED BLOOD COUNT 4.79 10^6/uL (4.30-6.10); WHITE BLOOD COUNT 5.4 10^3/uL (4.0-10.0)
[2022-12-10 10:53] LABS: LIPASE 28 U/L (12-53)
[2022-12-10 10:55] LABS: ALBUMIN 4.6 G/DL (3.2-5.2); ALKALINE PHOSPHATASE 92 U/L (46-116); ALT/SGPT 19 U/L (7.0-40); AMYLASE 61 U/L (30-118); AST/SGOT < 8 U/L (<34); BILIRUBIN,DIRECT 0.2 MG/DL (<0.4); BILIRUBIN,TOTAL 0.7 MG/DL (0.3-1.2); BLOOD UREA NITROGEN 11 MG/DL (9-23); CALCIUM LEVEL 9.6 MG/DL (8.5-10.1); CARBON DIOXIDE LEVEL 26 MMOL/L (20-31); CHLORIDE LEVEL 111 MMOL/L (98-107); CREATININE FOR GFR 0.78 MG/DL (0.70-1.30); GLOMERULAR FILTRATION RATE > 60.0 (>60); GLUCOSE, FASTING 87 MG/DL (60-100); POTASSIUM SERUM 4.8 MMOL/L (3.5-5.1); SODIUM LEVEL 142 MMOL/L (136-145); TOTAL PROTEIN 7.1 G/DL (5.7-8.2)
[2022-12-10 13:09] VITALS: BP 142/82; TEMP 97.2; O2SAT 99
== END 2022-12-10 13:12 | disposition home or self-care (01) ==
LOC: M ED 09:42
DX: R16.0 Hepatomegaly, not elsewhere classified (principal); G35 Multiple sclerosis; G47.33 Obstructive sleep apnea (adult) (pediatric); Z86.718 Personal history of other venous thrombosis and embolism; F43.10 Post-traumatic stress disorder, unspecified; I10 Essential (primary) hypertension; F12.10 Cannabis abuse, uncomplicated

== ENCOUNTER 2023-06-17 11:52 | Emergency (ER) | payer OTHER ==
[~2023-06-17] VITALS: Ht 175.3 cm; Wt 100.6 kg
[~2023-06-17 11:52] MED LIST changes: -AMIT25TA17 PO; +AMIT25TA19 PO; -GABA-283 PO; +GABA-284 PO; -PREG75CA2 PO; +PREG75CA3 PO
[2023-06-17 11:53] VITALS: BP 165/89; TEMP 97.7; O2SAT 96
[2023-06-17] MEDS ORDERED: GLAT40IN3 SQ (12:06)
[2023-06-17] MEDS ORDERED: BACL10TA2 (12:07)
[2023-06-17] MEDS ORDERED: OMEP-173 PO (12:07)
== END 2023-06-17 13:39 | disposition home or self-care (01) ==
LOC: M ED 11:52
DX: S83.412A Sprain of medial collateral ligament of left knee, initial encounter (principal); X50.0XXA Overexertion from strenuous movement or load, initial encounter; F43.10 Post-traumatic stress disorder, unspecified; G35 Multiple sclerosis; F12.10 Cannabis abuse, uncomplicated; Z88.5 Allergy status to narcotic agent; Z88.8 Allergy status to other drugs, medicaments and biological substances; Z79.83 Long term (current) use of bisphosphonates; Z79.899 Other long term (current) drug therapy; Z79.891 Long term (current) use of opiate analgesic

== ENCOUNTER 2023-07-01 08:52 | Emergency (ER) | payer OTHER ==
[~2023-07-01] VITALS: Ht 175.3 cm; Wt 100.3 kg
[~2023-07-01 08:52] MED LIST changes: +BACL10TA2; +GLAT40IN3 SQ; +OMEP-173 PO
[2023-07-01 10:21] LABS: BASO % 0.5 % (0.0-1.0); EOS # 0.1 10^3/uL (0.0-0.5); EOS % 1.4 % (0.0-3.0); HEMATOCRIT 46.5 % (42.0-52.0); HEMOGLOBIN 15.4 g/dl (13.5-17.5); LYMPH # 1.6 10^3/uL (1.5-5.0); LYMPH % 18.7 % (24.0-44.0); MEAN CORPUSCULAR HEMOGLOBIN 29.4 pg (27.0-33.0); MEAN CORPUSCULAR HGB CONC 33.1 g/dl (32.0-36.5); MEAN CORPUSCULAR VOLUME 88.7 fl (80.0-96.0); MONO # 0.8 10^3/uL (0.0-0.8); MONO % 9.7 % (2.0-8.0); NEUTROPHILS % 69.5 % (36.0-66.0); PLATELET COUNT, AUTOMATED 283 10^3/uL (150-450); RED BLOOD COUNT 5.24 10^6/uL (4.30-6.10); WHITE BLOOD COUNT 8.6 10^3/uL (4.0-10.0)
[2023-07-01 10:32] LABS: INR 1.02; PROTHROMBIN TIME 13.1 SECONDS (12.5-14.5)
[2023-07-01 10:33] LABS: PARTIAL THROMBOPLASTIN TIME 29.1 SECONDS (24.8-34.2)
[2023-07-01 10:44] LABS: LIPASE 29 U/L (12-53)
[2023-07-01 10:45] LABS: AMYLASE 64 U/L (30-118)
[2023-07-01 10:46] LABS: ALBUMIN 4.5 G/DL (3.2-5.2); ALKALINE PHOSPHATASE 103 U/L (46-116); ALT/SGPT 18 U/L (7.0-40); AST/SGOT 11 U/L (<34); BILIRUBIN,DIRECT 0.3 MG/DL (<0.4); BILIRUBIN,TOTAL 0.8 MG/DL (0.3-1.2); BLOOD UREA NITROGEN 13 MG/DL (9-23); CALCIUM LEVEL 9.5 MG/DL (8.5-10.1); CARBON DIOXIDE LEVEL 27 MMOL/L (20-31); CHLORIDE LEVEL 109 MMOL/L (98-107); CREATININE FOR GFR 1.06 MG/DL (0.70-1.30); GLOMERULAR FILTRATION RATE > 60.0 (>60); GLUCOSE, FASTING 102 MG/DL (60-100); POTASSIUM SERUM 4.3 MMOL/L (3.5-5.1); SODIUM LEVEL 142 MMOL/L (136-145); TOTAL PROTEIN 7.4 G/DL (5.7-8.2)
[2023-07-01] MEDS ORDERED: NS 1,000 ML IV ONE (11:25)
[2023-07-01] MEDS ORDERED: ONDANSETRON 4MG 2ML VIAL IV ONE (11:25)
[2023-07-01] MEDS ORDERED: MORPHINE 4 MG/ML 1ML VIAL IV ONE (11:25)
[2023-07-01] MEDS ORDERED: PANTOPRAZOLE 40MG VIAL IV ONE (11:55)
[2023-07-01] MEDS ORDERED: ISOVUE-370 76% 100ML VIAL As Ordered ONE (11:59)
[2023-07-01] MEDS ORDERED: ONDA4TAB6 PO (14:53)
[2023-07-01 15:04] VITALS: BP 128/79; TEMP 96.7; O2SAT 98
== END 2023-07-01 15:10 | disposition home or self-care (01) ==
LOC: M ED 08:52
DX: K80.50 Calculus of bile duct without cholangitis or cholecystitis without obstruction (principal); F43.10 Post-traumatic stress disorder, unspecified; M54.50 Low back pain, unspecified; G47.33 Obstructive sleep apnea (adult) (pediatric); N40.0 Benign prostatic hyperplasia without lower urinary tract symptoms; G43.909 Migraine, unspecified, not intractable, without status migrainosus; Z88.5 Allergy status to narcotic agent; Z88.8 Allergy status to other drugs, medicaments and biological substances; Z87.820 Personal history of traumatic brain injury; Z79.83 Long term (current) use of bisphosphonates; Z79.811 Long term (current) use of aromatase inhibitors; Z79.899 Other long term (current) drug therapy
CPT/HCPCS: 36415; 74177; 76705; 80048; 80076; 81001; 82150; 83605; 83690; 85025; 85610; 85730; 93005; 96361; 96374; 96375; 99284; C9113; J2405; Q9967

== ENCOUNTER 2023-09-09 11:44 | Emergency (ER) | payer OTHER ==
[~2023-09-09] VITALS: Ht 177.8 cm; Wt 101.0 kg
[2023-09-09 12:26] LABS: BASO % 0.7 % (0.0-1.0); EOS # 0.1 10^3/uL (0.0-0.5); EOS % 1.9 % (0.0-3.0); HEMATOCRIT 45.9 % (42.0-52.0); HEMOGLOBIN 15.1 g/dl (13.5-17.5); LYMPH # 1.5 10^3/uL (1.5-5.0); LYMPH % 26.5 % (24.0-44.0); MEAN CORPUSCULAR HEMOGLOBIN 29.2 pg (27.0-33.0); MEAN CORPUSCULAR HGB CONC 32.9 g/dl (32.0-36.5); MEAN CORPUSCULAR VOLUME 88.8 fl (80.0-96.0); MONO # 0.6 10^3/uL (0.0-0.8); MONO % 11.1 % (2.0-8.0); NEUTROPHILS # 3.4 10^3/uL (1.5-8.5); NEUTROPHILS % 59.4 % (36.0-66.0); PLATELET COUNT, AUTOMATED 299 10^3/uL (150-450); RED BLOOD COUNT 5.17 10^6/uL (4.30-6.10); WHITE BLOOD COUNT 5.7 10^3/uL (4.0-10.0)
[2023-09-09 12:37] LABS: PARTIAL THROMBOPLASTIN TIME 27.6 SECONDS (24.8-34.2); PROTHROMBIN TIME 12.9 SECONDS (12.5-14.5)
[2023-09-09 12:52] LABS: LIPASE 33 U/L (12-53)
[2023-09-09 12:54] LABS: ALBUMIN 4.4 G/DL (3.2-5.2); ALKALINE PHOSPHATASE 110 U/L (46-116); ALT/SGPT 24 U/L (7.0-40); AMYLASE 84 U/L (30-118); AST/SGOT 14 U/L (<34); BILIRUBIN,DIRECT 0.2 MG/DL (<0.4); BILIRUBIN,TOTAL 0.5 MG/DL (0.3-1.2); BLOOD UREA NITROGEN 12 MG/DL (9-23); CALCIUM LEVEL 9.5 MG/DL (8.5-10.1); CARBON DIOXIDE LEVEL 27 MMOL/L (20-31); CHLORIDE LEVEL 110 MMOL/L (98-107); CREATININE FOR GFR 0.88 MG/DL (0.70-1.30); GLOMERULAR FILTRATION RATE > 60.0 (>60); GLUCOSE, FASTING 121 MG/DL (60-100); POTASSIUM SERUM 4.4 MMOL/L (3.5-5.1); SODIUM LEVEL 141 MMOL/L (136-145); TOTAL PROTEIN 7.5 G/DL (5.7-8.2)
[2023-09-09] MEDS ORDERED: ISOVUE-370 76% 100ML VIAL As Ordered ONE (14:57)
[2023-09-09 16:49] VITALS: BP 152/86; TEMP 98.2; O2SAT 100
== END 2023-09-09 16:55 | disposition home or self-care (01) ==
LOC: M ED 13:37
DX: K92.2 Gastrointestinal hemorrhage, unspecified (principal); M25.562 Pain in left knee; M25.462 Effusion, left knee; S83.242A Other tear of medial meniscus, current injury, left knee, initial encounter; Z87.820 Personal history of traumatic brain injury; Z90.49 Acquired absence of other specified parts of digestive tract; Z88.5 Allergy status to narcotic agent; Z88.8 Allergy status to other drugs, medicaments and biological substances; Z79.83 Long term (current) use of bisphosphonates; Z79.891 Long term (current) use of opiate analgesic; Z79.899 Other long term (current) drug therapy; X58.XXXA Exposure to other specified factors, initial encounter; Y92.9 Unspecified place or not applicable; Y93.9 Activity, unspecified; Y99.9 Unspecified external cause status
CPT/HCPCS: 73721; 74177; 80047; 80048; 80076; 81001; 82150; 83605; 83690; 85025; 85610; 85730; 86850; 86900; 86901; 99284; Q9967

== ENCOUNTER → 2023-09-09 | Outpatient (CLI) | payer OTHER ==
[~2023-09-09] MED LIST changes: +ONDA4TAB6 PO
== END ==
LOC: M PLAIMG 10:07
PROVIDERS: ATTEND Physician Assistant
DX: M25.562 Pain in left knee (principal); M25.462 Effusion, left knee; S83.242A Other tear of medial meniscus, current injury, left knee, initial encounter; X58.XXXA Exposure to other specified factors, initial encounter; Y92.9 Unspecified place or not applicable; Y93.9 Activity, unspecified; Y99.9 Unspecified external cause status

== ENCOUNTER 2024-12-15 06:12 | Day surgery (SDC) | payer OTHER ==
[~2024-12-15] VITALS: Ht 175.3 cm; Wt 98.7 kg
[~2024-12-15 06:12] MED LIST changes: +CELE1CAP4 PO; +GABA-1172 PO; -GABA-282 PO; +ONDA-282 PO; -ONDA4TAB6 PO; +PANT40TA29 PO; -ROSU40TA4 PO; +ROSU40TA81 PO; +RSO PO; +TOPI-14 PO; +TOPI-256 PO; +TOPI-257 PO; -TOPI100T9 PO; -TOPI200T7 PO; -TOPI25TA10 PO
[2024-12-15] MEDS ORDERED: KETOROLAC 30 MG/ML 1 ML VIAL As Ordered ONE (06:36)
[2024-12-15] MEDS ORDERED: LIDOCAINE 2% 100 MG/5 ML SDV (FOR ANES.) As Ordered ONE (06:36)
[2024-12-15] MEDS ORDERED: ONDANSETRON 4MG 2ML VIAL As Ordered ONE (06:37)
[2024-12-15] MEDS ORDERED: ACETAMINOPHEN 1000MG/100ML IV BAG As Ordered ONE (06:37)
[2024-12-15] MEDS ORDERED: dexAMETHasone 4 MG/ML 1 ML VIAL As Ordered ONE (06:37)
[2024-12-15] MEDS ORDERED: LR 1,000 ML IV SCH ×2 (06:40→08:35)
[2024-12-15] MEDS ORDERED: HYDROmorphone HCL 2 MG/ML 1 ML VIAL As Ordered ONE (06:40)
[2024-12-15 07:08] LABS: PLATELET COUNT, AUTOMATED 238 10^3/uL (150-450)
[2024-12-15] MEDS ORDERED: MIDAZOLAM INJ 2 MG/2 ML VIAL As Ordered ONE (07:28)
[2024-12-15] MEDS ORDERED: GLYCOPYRROLATE INJ 0.2 MG/ML 2 ML VIAL As Ordered ONE (07:33)
[2024-12-15] MEDS: ceFAZolin SODIUM 2 GM in DEXTROSE 5% (D5W) ADV/MINI-BAG 50 ML IV ONE (07:35)
[2024-12-15 07:41] LABS: CALCIUM LEVEL 8.6 MG/DL (8.5-10.1); CARBON DIOXIDE LEVEL 22 MMOL/L (20-31); CHLORIDE LEVEL 112 MMOL/L (98-107); CREATININE FOR GFR 0.95 MG/DL (0.70-1.30); GLOMERULAR FILTRATION RATE > 90.0 (>60); POTASSIUM SERUM 4.1 MMOL/L (3.5-5.1); SODIUM LEVEL 146 MMOL/L (136-145)
[2024-12-15] MEDS: LIDOCAINE W/EPINEPHrine 1% 20 ML VIAL As Ordered ONE (08:03)
[2024-12-15] MEDS: MORPHINE 10 MG/ML 1 ML VIAL As Ordered ONE (08:18)
[2024-12-15] MEDS ORDERED: ONDANSETRON 4MG 2ML VIAL IV PRN (08:35)
[2024-12-15] MEDS ORDERED: MORPHINE 2 MG/ML 1 ML VIAL IV PRN (08:35)
[2024-12-15] MEDS: EPINEPHrine 1 MG/ML INJ 30 ML MD-VIAL As Ordered ONE (08:41)
[2024-12-15] MEDS ORDERED: HYDR-4571 PO (08:50)
[2024-12-15] MEDS ORDERED: SUZE50TA PO (08:50)
[2024-12-15] MEDS ORDERED: ASPI81CH33 PO (08:50)
[2024-12-15 09:50] VITALS: BP 146/84; TEMP 96.1; O2SAT 100
== END 2024-12-15 09:54 | disposition home or self-care (01) ==
LOC: M SDC 06:12
PROVIDERS: ATTEND Neuromusculoskeletal Medicine, Sports Medicine
DX: S83.242A Other tear of medial meniscus, current injury, left knee, initial encounter (principal); M65.962 Unspecified synovitis and tenosynovitis, left lower leg; M17.12 Unilateral primary osteoarthritis, left knee; G35 Multiple sclerosis; X58.XXXA Exposure to other specified factors, initial encounter; Y93.9 Activity, unspecified; Y92.9 Unspecified place or not applicable; I10 Essential (primary) hypertension; G47.30 Sleep apnea, unspecified; N40.0 Benign prostatic hyperplasia without lower urinary tract symptoms; Z79.899 Other long term (current) drug therapy; Z90.49 Acquired absence of other specified parts of digestive tract; Z88.8 Allergy status to other drugs, medicaments and biological substances; Z88.5 Allergy status to narcotic agent; Z87.891 Personal history of nicotine dependence
CPT/HCPCS: 29881; 36415; 80048; 85027; 93005; J0131; J0665; J0690; J1100; J1171; J1596; J1885; J2250; J2405

== ENCOUNTER → 2025-03-04 | Outpatient (CLI) | payer OTHER ==
[~2025-03-04] MED LIST changes: +ASPI81CH33 PO; +HYDR-4571 PO; +SUZE50TA PO
== END ==
LOC: M SOG 10:16
PROVIDERS: ATTEND Neuromusculoskeletal Medicine, Sports Medicine
DX: S83.232D Complex tear of medial meniscus, current injury, left knee, subsequent encounter (principal)

== ENCOUNTER → 2025-04-07 | Outpatient (CLI) | payer OTHER | LOC: M PLAIMG 13:50 | PROVIDERS: ATTEND Neuromusculoskeletal Medicine, Sports Medicine | DX: S83.232D Complex tear of medial meniscus, current injury, left knee, subsequent encounter (principal); M25.462 Effusion, left knee; M22.42 Chondromalacia patellae, left knee ==